=== PATIENT | female | born 1945 | race Caucasian/White ===

== ENCOUNTER 2019-04-19 18:09 | Inpatient (IN) ==
[2019-04-19] MEDS ORDERED: ALBUTEROL SULFATE 2.5 MG/0.5 ML VIAL.NEB IH ONE ×2 (18:16→18:18)
--- NOTE | 2019-04-19 18:18 | ERNOTE ---
Dyspnea - General Presenting Symptoms: shortness of breath Time Seen by Provider: 04/19/19 18:10 Source: patient Exam Limitations: no limitations - Immun/Allergies/Home Medications Immunizations: IMMUNIZATION HX Immunizations Up to Date Yes Allergies/Adverse Reactions: Allergies levofloxacin [From Levaquin] Allergy (Intermediate, Verified 04/19/19 18:14) TONGUE SWOLLEN, RASH amlodipine besylate [From Norvasc] Allergy (Mild, Verified 04/19/19 18:14) SWELLING amoxicillin [Amoxicillin] Allergy (Mild, Verified 04/19/19 18:14) SWELLING ampicillin Allergy (Mild, Verified 04/19/19 18:14) SWELLING nifedipine [From Procardia] Allergy (Mild, Verified 04/19/19 18:14) SWELLING sulfamethoxazole [From Bactrim] Allergy (Mild, Verified 04/19/19 18:14) SWELLING trimethoprim [From Bactrim] Allergy (Mild, Verified 04/19/19 18:14) SWELLING peanut Allergy (Verified 04/19/19 18:14) soybean Allergy (Verified 04/19/19 18:14) wheat Allergy (Verified 04/19/19 18:14) tetracycline [Tetracycline] Adverse Reaction (Intermediate, Verified 04/19/19 18:14) TACHYCARDIA acetaminophen [From Percocet] Adverse Reaction (Mild, Verified 04/19/19 18:14) PROJECTILE VOMITING aspirin Adverse Reaction (Mild, Verified 04/19/19 18:14) Vomiting azithromycin [From Zithromax Z-Bryon] Adverse Reaction (Mild, Verified 04/19/19 18:14) RASH, NAUSEA codeine Adverse Reaction (Mild, Verified 04/19/19 18:14) Nausea hydrocodone bitartrate [From Vicodin] Adverse Reaction (Mild, Verified 04/19/19 18:14) NAUSEA, PROJECTILE VOMITING ibuprofen Adverse Reaction (Mild, Verified 04/19/19 18:14) Vomiting latex Adverse Reaction (Mild, Verified 04/19/19 18:14) RASH oxycodone HCl [From Percocet] Adverse Reaction (Mild, Verified 04/19/19 18:14) PROJECTILE VOMITING sulindac [From Clinoril] Adverse Reaction (Mild, Verified 04/19/19 18:14) Nausea Home Medications: HOME MEDICATIONS Acetaminophen [Tylenol] 325 mg PO Q4H PRN 03/11/14 [Last Taken Unknown] Cetirizine HCl [Zyrtec] 5 mg PO DAILY PRN 03/11/14 [Last Taken Unknown] Multivitamins [Multivitamin Jose Guadalupe] 1 cap PO DAILY 03/11/14 [Last Taken Unknown] Lutein/Zeaxanthin 1 cap PO DAILY 07/20/14 [Last Taken Unknown] fluticasone 250 mcg-salmeterol 50 mcg/dose blistr powdr for inhalation 1 inh IH ONCE #60 ea 12/28/18 [Last Taken Unknown] albuterol sulfate HFA 90 mcg/actuation aerosol inhaler 2 puff INHALATION Q3H PRN #18 g 01/13/19 [Last Taken Unknown] losartan 50 mg-hydrochlorothiazide 12.5 mg tablet 1 tab PO DAILY #90 tab 01/13/19 [Last Taken Unknown] omeprazole magnesium 20 mg tablet,delayed release 20 mg PO DAILY #90 tab 01/13/19 [Last Taken Unknown] - History of Present Illness Narrative: Patient states that she has had increasing shortness of breath for 2-3 days, cough with yellow phlegm, low grade temperature. She has a history of asthma, uses inhalers only as needed. 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 Denies: out of meds, exposure to smoke Frequency of episodes: Reports: occassional episodes Modifying Factors - (Improves): Reports: albuterol, rest Modifying Factors (Worsens): Reports: activity Associated Symptoms-Dyspnea: Reports: fever/chills, cough, wheezing. Denies: chest pain/discomfort Prior Treatment: Reports: previous episodes - years ago. Denies: recently seen, currently on antibiotics Review of Systems - Review of Systems Constitutional: Present: fever, chills, malaise ENT: Absent: nose congestion, nasal drainage, sore throat Respiratory: Present: shortness of breath, cough Cardiology: Absent: chest pain Gastrointestinal/Abdominal: Absent: nausea, vomiting, abdominal pain Genitourinary: Present: no symptoms reported Musculoskeletal: Absent: back pain Neurological: Absent: headache, weakness, numbness Medical History (Updated 01/13/19 @ 13:46 by Juanjose Alicia MD) Hypertension (Chronic) Onset Date: Unknown Cervical lymphadenopathy (Chronic) Onset Date: ~03/2013 Node on the right side of the neck has seen ENT Dr. Matthews was told it was benign lesion Asthma, intermittent (Chronic) Onset Date: ~03/2013 Arthritis (Chronic) Onset Date: Unknown Scoliosis Onset Date: Unknown Otitis media Onset Date: ~12/2012 Shoulder dislocation Onset Date: ~2014 Spondylolysis of lumbosacral region Onset Date: Unknown Uterovaginal prolapse, incomplete Onset Date: ~2010 Surgical History: Surgical History (Updated 01/11/19 @ 09:29 by Rhona Blanco LPN) H/O laparoscopy Onset Date: ~08/2008 H/O tubal ligation Onset Date: ~1979 History of carpal tunnel release Onset Date: ~04/2010 History of right salpingo-oophorectomy Onset Date: ~08/2008 History of tonsillectomy Onset Date: ~1950 History of total vaginal hysterectomy (TVH) Onset Date: ~04/2010 [place] teeth extracted Onset Date: ~1963 utero sacral ligament fixation Onset Date: ~04/2010 H/O colonoscopy with polypectomy Onset Date: ~03/2014 H/O cystoscopy Onset Date: ~04/2010 Family History: Family History (Updated 09/02/18 @ 14:37 by Ignacio De LPN) Father Hypertension Glaucoma CAD (coronary artery disease) Brother Hypertension Diabetes Osteoarthritis Sister Osteoarthritis Hyperthyroidism Mother Hypothyroidism COPD (chronic obstructive pulmonary disease) Uncle Osteoarthritis Social History: Preferred Language German Smoking Status Current every day smoker Alcohol Use none Drug Use none (Last Updated 01/13/19 @ 13:47 by Juanjose Alicia MD) No Social History Section defined Physical Exam - Physical Exam General Appearance: Present: wd/wn, alert, mild distress Head Exam: Present: normal inspection Eye Exam: Normal inspection: bilateral Ears, Nose, Throat: Present: normal pharynx Respiratory: Present: chest nontender, respiratory distress - patient speaks in four work sentences, decreased breath sounds, expiration (prolonged), wheezing Cardiovascular/Chest: Present: no murmur, tachycardia Gastrointestinal/Abdominal: Present: normal bowel sounds, nontender, nondistended, soft Extremity Exam: Present: no edema Neurological Exam: Present: alert, oriented, normal mood/affect Skin Exam: Present: normal color, warm/dry Progress - Results and Orders Patient's Lab Results:: I have reviewed the patient's lab results. - Vital Signs Patient's Vital Signs:: I have reviewed the patient's vital signs. Vital Signs: Vital Signs 04/19/19 18:10 04/19/19 18:14 Temperature 36.8 C Pulse Rate 119 H 120 H Respiratory Rate 26 H Blood Pressure 161/106 H O2 Sat by Pulse Oximetry 89 L - EKG EKG #1 EKG: NSR - sinustachycardia EKG read: Interp. by me - X-Ray X-Ray #1 X-Ray: chest - hyperinflated, fibrotic changes, no acute infiltrate Interpretation: Interp. by me - Progress/Reassessment Chief Complaint: Dyspnea Progress Note-Subjective: 04/19/19 18:47 feeling slightly better after neb treatment improve air movement 04/19/19 19:25 discussed test results with patient and family patient is much more comfortable, reduced respiratory rate, O2sat 92-93% on 2liter 04/19/19 19:[address] Martin, sandraay to admit to observation for COPD, will hold off on antibiotics Departure Clinical Impression: COPD exacerbation, Hypoxemia, Hyponatremia - Departure Disposition: Still a patient Condition: Stable
[2019-04-19 18:25] LABS: Hematocrit 39.7 % (37.0-47.0); Hemoglobin 13.7 gm/dL (12.5-16.0); Mean Cell Volume 92.5 fl (78-100); Mean Corpuscular Hemoglobin 31.9 pg (27-31); Mean Corpuscular Hgb Conc 34.5 g/dl (32-36); Mean Platelet Volume 9.1 fl (8-12.5); Neutrophil # 5.9 K/mm3 (1.3-6.0); Platelet Count 228 K/mm3 (150-450); Red Blood Count 4.29 M/mm3 (4.2-5.4); Red Cell Distribution Width 13.2 % (11.5-14.0); White Blood Count 8.6 K/mm3 (4.0-10.5)
[2019-04-19 18:43] LABS: ALT 27 U/L (19-67); AST 21 U/L (0-48); Albumin * 3.6 gm/dl (3.4-5.0); Alkaline Phosphatase * 63 U/L (50-170); Anion Gap 15.2 mmol/L (6.8-13.8); BUN/Creatinine Ratio 10.9 (9.0-21.6); Bilirubin, Total 0.5 mg/dL (0.0-1.1); Blood Urea Nitrogen 5 mg/dL (3-23); Ca. Corrected For Albumin 8.6 mg/dL (8.4-10.2); Calcium * 8.6 mg/dL (7.9-10.9); Carbon Dioxide 25.6 mmol/L (24-32.6); Chloride 88 mmol/L (97-106); Glucose * 117 mg/dL (70-110); Potassium 3.8 mmol/L (3.4-4.6); Sodium 125 mmol/L (132-142); Total Protein 7.1 gm/dL (6.2-8.2); Troponin I Less than 0.017 ng/mL (0.00-0.10)
[2019-04-19] MEDS ORDERED: METHYLPREDNISOLONE SOD SUCC/PF 125 MG/2 ML VIAL IV ONE (18:48)
[2019-04-19] MEDS ORDERED: ALBUTEROL SULFATE 2.5 MG/0.5 ML VIAL.NEB IH PRN (19:50)
[2019-04-19] MEDS ORDERED: ALBUTEROL SULFATE/IPRATROPIUM 3 ML NEBU IH SCH (20:00)
[2019-04-20] MEDS: ALBUTEROL SULFATE/IPRATROPIUM 3 ML NEBU IH SCH ×4 (01:01→18:11)
[2019-04-20] MEDS ORDERED: LORATADINE 10 MG TABLET PO PRN (05:49)
[2019-04-20] MEDS ORDERED: ACETAMINOPHEN 325 MG TABLET PO PRN (05:49)
[2019-04-20] MEDS ORDERED: FLUTICASONE PROPION/SALMETEROL 14 PUFF DISK.W.DEV IH SCH (06:00)
--- NOTE | 2019-04-20 08:09 | HP ---
Chief Complaint - Chief Complaint Date of Service: 04/20/19 Time of Service: 07:44 Chief Complaint: shortness of breath History of Present Illness: Patient with PMHx of intermittent asthma and environmental allergies was brought to the ED via EMS for shortness of breath. She had a few days of upper respiratory congestion. She lives in an old house with 19 steep stairs, and the bathrooms are upstairs. She developed acute onset shortness of breath after coming down from the bathroom, which is when her called EMS. She had a similar episode 19 years ago. She reports having a temperature in the 99 range, which she reports is a fever for her. Her cough had been productive of yellow sputum, but is now dry. She denies chest pain or lower extremity swelling. In the ED, she was given 125 mg of Solu-Medrol, and feels better today. She does not use oxygen at baseline, but is using oxygen currently. She has an extensive allergy list to many antibiotics, and would prefer to avoid antibiotics if possible. She has some hesitancy to try oral steroids, but is willing to do so to help clear up her symptoms. Medical History (Updated 04/19/19 @ 20:07 by Rhona Phipps MD) Hypertension (Chronic) Onset Date: Unknown Cervical lymphadenopathy (Chronic) Onset Date: ~03/2013 Node on the right side of the neck has seen ENT Dr. Matthews was told it was benign lesion Asthma, intermittent (Chronic) Onset Date: ~03/2013 Arthritis (Chronic) Onset Date: Unknown Scoliosis Onset Date: Unknown Otitis media Onset Date: ~12/2012 Shoulder dislocation Onset Date: ~2014 Spondylolysis of lumbosacral region Onset Date: Unknown Uterovaginal prolapse, incomplete Onset Date: ~2010 Surgical History: Surgical History (Updated 01/11/19 @ 09:29 by Rhona Blanco LPN) H/O laparoscopy Onset Date: ~08/2008 H/O tubal ligation Onset Date: ~1979 History of carpal tunnel release Onset Date: ~04/2010 History of right salpingo-oophorectomy Onset Date: ~08/2008 History of tonsillectomy Onset Date: ~1950 History of total vaginal hysterectomy (TVH) Onset Date: ~04/2010 [place] teeth extracted Onset Date: ~1963 utero sacral ligament fixation Onset Date: ~04/2010 H/O colonoscopy with polypectomy Onset Date: ~03/2014 H/O cystoscopy Onset Date: ~04/2010 Family History: Family History (Updated 09/02/18 @ 14:37 by Ignacio De LPN) Father Hypertension Glaucoma CAD (coronary artery disease) Brother Hypertension Diabetes Osteoarthritis Sister Osteoarthritis Hyperthyroidism Mother Hypothyroidism COPD (chronic obstructive pulmonary disease) Uncle Osteoarthritis Social History: Patient Lives/Resources With Spouse Utilized Occupation retired Preferred Language Divehi Do you have any congregational or Yes: christian cultural preference? Smoking Status Current every day smoker Have you smoked in the past 12 Yes months Alcohol Use none Drug Use none (Last Updated 01/13/19 @ 13:47 by Juanjose Alicia MD) No Social History Section defined Review Of Systems (GEN) - Review of Systems Generalized/Overall Review: Present: Fever - Subjective EENTM: Absent: Throat Pain Respiratory: Present: Cough, Shortness of Breath, Wheezing Cardiac: Absent: Chest Pain, Edema Abdominal: Present: Diarrhea - Has had loose stools for about a week. Absent: Nausea, Vomiting Genitourinary: Present: No Symptoms Reported Musculoskeletal: Present: No Symptoms Reported Neurological: Present: No Symptoms Reported Skin: Present: No Symptoms Reported Immunizations: IMMUNIZATION HX Immunizations Up to Date Yes Allergies/Adverse Reactions: Allergies Allergy/AdvReac Type Severity Reaction Status Date / Time levofloxacin [From Levaquin] Allergy Intermediate TONGUE Verified 04/19/19 18:14 SWOLLEN, RASH amlodipine besylate Allergy Mild SWELLING Verified 04/19/19 18:14 [From Norvasc] amoxicillin [Amoxicillin] Allergy Mild SWELLING Verified 04/19/19 18:14 ampicillin Allergy Mild SWELLING Verified 04/19/19 18:14 nifedipine [From Procardia] Allergy Mild SWELLING Verified 04/19/19 18:14 sulfamethoxazole Allergy Mild SWELLING Verified 04/19/19 18:14 [From Bactrim] trimethoprim [From Bactrim] Allergy Mild SWELLING Verified 04/19/19 18:14 peanut Allergy Verified 04/19/19 18:14 soybean Allergy Verified 04/19/19 18:14 wheat Allergy Verified 04/19/19 18:14 tetracycline [Tetracycline] AdvReac Intermediate TACHYCARDIA Verified 04/19/19 18:14 acetaminophen [From Percocet] AdvReac Mild PROJECTILE Verified 04/19/19 18:14 VOMITING aspirin AdvReac Mild Vomiting Verified 04/19/19 18:14 azithromycin AdvReac Mild RASH, Verified 04/19/19 18:14 [From Zithromax Z-Bryon] NAUSEA codeine AdvReac Mild Nausea Verified 04/19/19 18:14 hydrocodone bitartrate AdvReac Mild NAUSEA, Verified 04/19/19 18:14 [From Vicodin] PROJECTILE VOMITING ibuprofen AdvReac Mild Vomiting Verified 04/19/19 18:14 latex AdvReac Mild RASH Verified 04/19/19 18:14 oxycodone HCl [From Percocet] AdvReac Mild PROJECTILE Verified 04/19/19 18:14 VOMITING sulindac [From Clinoril] AdvReac Mild Nausea Verified 04/19/19 18:14 Home Medications: HOME MEDICATIONS Acetaminophen [Tylenol] 325 mg PO Q4H PRN 03/11/14 [Last Taken Unknown] Cetirizine HCl [Zyrtec] 5 mg PO DAILY PRN 03/11/14 [Last Taken Unknown] Multivitamins [Multivitamin Jose Guadalupe] 1 cap PO DAILY 03/11/14 [Last Taken Unknown] Lutein/Zeaxanthin 1 cap PO DAILY 07/20/14 [Last Taken Unknown] fluticasone 250 mcg-salmeterol 50 mcg/dose blistr powdr for inhalation 1 inh IH ONCE #60 ea 12/28/18 [Last Taken Unknown] albuterol sulfate HFA 90 mcg/actuation aerosol inhaler 2 puff INHALATION Q3H PRN #18 g 01/13/19 [Last Taken Unknown] losartan 50 mg-hydrochlorothiazide 12.5 mg tablet 1 tab PO DAILY #90 tab 01/13 [Last Taken Unknown] omeprazole magnesium 20 mg tablet,delayed release 20 mg PO DAILY #90 tab 01/13/19 [Last Taken Unknown] Exam - Exam Vital Signs: Vital Signs - Last Taken Temp 36.4 C 04/20/19 06:41 Pulse 115 H 04/20/19 06:41 Resp 22 H 04/20/19 06:41 BP 134/83 04/20/19 06:41 Pulse Ox 95 04/20/19 06:41 Constitutional: Present: Alert, Oriented x3, Cooperative, Elderly, Thin and frail ENT Exam: Present: moist mucous membranes Respiratory: Present: no respiratory distress, wheezing - Extensive expiratory wheezing in all lung thibodeaux, other - Wearing nasal cannula at 2 L Cardiovascular/Chest: Present: no edema, tachycardia Abdomen: Present: Normal bowel sounds, soft, nontender Extremity: Absent: lower extremity edema Neurologic: Present: normal mood/affect Eye contact: Present: cooperative Diagnostic Studies: Abnormal Lab Results 04/19/19 04/19/19 04/19/19 Range/Units 18:20 18:20 18:20 MCH 31.9 H (27-31) pg Monocytes % 10.4 H (0.0-9) % Sodium 125 L (132-142) mmol/L Plasma Sodium 125 L (130-142) mmol/L Chloride 88 L (97-106) mmol/L Anion Gap 15.2 H (6.8-13.8) mmol/L Est GFR (Non-Af Amer) 142 H D (60-130) mL/min Random Glucose 117 H (70-110) mg/dL B-Natriuretic Peptide 462 H (5-325) pg/mL Laboratory Results WBC 8.6 K/mm3 (4.0-10.5) 04/19/19 18:20 RBC 4.29 M/mm3 (4.2-5.4) 04/19/19 18:20 Hgb 13.7 gm/dL (12.5-16.0) 04/19/19 18:20 Hct 39.7 % (37.0-47.0) 04/19/19 18:20 MCV 92.5 fl (78-100) 04/19/19 18:20 MCH 31.9 pg (27-31) H 04/19/19 18:20 MCHC 34.5 g/dl (32-36) 04/19/19 18:20 RDW 13.2 % (11.5-14.0) 04/19/19 18:20 Plt Count 228 K/mm3 (150-450) 04/19/19 18:20 MPV 9.1 fl (8-12.5) 04/19/19 18:20 Immature Gran % (Auto) 0.20 % (0.001-0.429) 04/19/19 18:20 Immature Gran # (Auto) 0.02 K/mm3 (0.000-0.0310) 04/19/19 18:20 68.0 % (42-75.0) 04/19/19 18:20 20.5 % (20-51) 04/19/19 18:20 10.4 % (0.0-9) H 04/19/19 18:20 0.1 % (0.0-3.0) 04/19/19 18:20 0.8 % (0.0-1.0) 04/19/19 18:20 Nucleated RBC % 0.0 k/mm3 (0-1) 04/19/19 18:20 5.9 K/mm3 (1.3-6.0) 04/19/19 18:20 1.77 k/mm3 (1.5-3.5) 04/19/19 18:20 0.9 k/mm3 (0.0-1.0) 04/19/19 18:20 0.0 k/mm3 (0.0-0.7) 04/19/19 18:20 Absolute Basophils 0.1 k/mm3 (0.0-0.1) 04/19/19 18:20 Sodium 125 mmol/L (132-142) L 04/19/19 18:20 125 mmol/L (130-142) L 04/19/19 18:20 Potassium 3.8 mmol/L (3.4-4.6) 04/19/19 18:20 Chloride 88 mmol/L (97-106) L 04/19/19 18:20 Carbon Dioxide 25.6 mmol/L (24-32.6) 04/19/19 18:20 15.2 mmol/L (6.8-13.8) H 04/19/19 18:20 BUN 5 mg/dL (3-23) 04/19/19 18:20 0.46 mg/dL (0.4-1.4) 04/19/19 18:20 Est GFR (Non-Af Amer) 142 mL/min (60-130) H D 04/19/19 18:20 10.9 (9.0-21.6) 04/19/19 18:20 117 mg/dL (70-110) H 04/19/19 18:20 Calcium 8.6 mg/dL (7.9-10.9) 04/19/19 18:20 Calcium Adj for Albumin 8.6 mg/dL (8.4-10.2) 04/19/19 18:20 0.5 mg/dL (0.0-1.1) 04/19/19 18:20 AST 21 U/L (0-48) 04/19/19 18:20 ALT 27 U/L (19-67) 04/19/19 18:20 63 U/L (50-170) 04/19/19 18:20 Less than 0.017 ng/mL (0.00-0.10) 04/19/19 18:20 B-Natriuretic Peptide 462 pg/mL (5-325) H 04/19/19 18:20 7.1 gm/dL (6.2-8.2) 04/19/19 18:20 3.6 gm/dl (3.4-5.0) 04/19/19 18:20 Assessment/Plan - Assessment/Plan (1) COPD exacerbation Assessment: Patient does not have a formal diagnosis of COPD, however her history and exam support COPD. Her CXR shows hyperinflation. She does not have an elevated WBC, and has been afebrile. She was given 125 mg of Solu-Medrol last night in the ER, and will continue 40 mg daily prednisone. Continue prn DuoNeb treatments. She feels better than she did yesterday, but still requires 2 L of oxygen, and is still getting dyspneic when walking to the bathroom. We will wean as tolerated. Will check her oxygen requirements with walking. She would prefer to avoid antibiotics since she has so many allergies. Will hold off on antibiotics at this time, but if she is still not better tomorrow, we will discuss starting doxycycline. Her reports she appears to be close to her baseline. She has not been hospitalized for this before. Possible DC tomorrow. She would benefit from having a commode on the main level of her home. With her likely COPD, and the bathrooms being on the upper level of her home, she will probably have repeated hospitalizations. Recommend checking PFTs after DC when her breathing status has normalized. Problem: Acute (2) Hyponatremia Assessment: Sodium of 125 on presentation to the ED yesterday. Repeat pending. If still low, will give 1 L of fluids throughout the day and recheck tomorrow. She denies alcohol intake. Problem: Acute (3) Hypertension Assessment: Well-controlled. Continuing home medications. Problem: Chronic Qualifiers: (4) Asthma, intermittent Assessment: Continuing home medications. Problem: Chronic (5) Chronic GERD Assessment: Continue home omeprazole. Problem: Chronic
--- NOTE | 2019-04-20 08:18 | HP ---
Chief Complaint - Chief Complaint Date of Service: 04/20/19 Time of Service: 07:30 Medical History (Updated 04/19/19 @ 20:07 by Rhona Phipps MD) Hypertension (Chronic) Onset Date: Unknown Cervical lymphadenopathy (Chronic) Onset Date: ~03/2013 Node on the right side of the neck has seen ENT Dr. Matthews was told it was benign lesion Asthma, intermittent (Chronic) Onset Date: ~03/2013 Arthritis (Chronic) Onset Date: Unknown Scoliosis Onset Date: Unknown Otitis media Onset Date: ~12/2012 Shoulder dislocation Onset Date: ~2014 Spondylolysis of lumbosacral region Onset Date: Unknown Uterovaginal prolapse, incomplete Onset Date: ~2010 Surgical History: Surgical History (Updated 01/11/19 @ 09:29 by Rhona Blanco LPN) H/O laparoscopy Onset Date: ~08/2008 H/O tubal ligation Onset Date: ~1979 History of carpal tunnel release Onset Date: ~04/2010 History of right salpingo-oophorectomy Onset Date: ~08/2008 History of tonsillectomy Onset Date: ~1950 History of total vaginal hysterectomy (TVH) Onset Date: ~04/2010 [place] teeth extracted Onset Date: ~1963 utero sacral ligament fixation Onset Date: ~04/2010 H/O colonoscopy with polypectomy Onset Date: ~03/2014 H/O cystoscopy Onset Date: ~04/2010 Family History: Family History (Updated 09/02/18 @ 14:37 by Ignacio De LPN) Father Hypertension Glaucoma CAD (coronary artery disease) Brother Hypertension Diabetes Osteoarthritis Sister Osteoarthritis Hyperthyroidism Mother Hypothyroidism COPD (chronic obstructive pulmonary disease) Uncle Osteoarthritis Social History: Patient Lives/Resources With Spouse Utilized Occupation retired Preferred Language Upper Sorbian Do you have any anglican or Yes: latter-day cultural preference? Smoking Status Current every day smoker Have you smoked in the past 12 Yes months Alcohol Use none Drug Use none (Last Updated 01/13/19 @ 13:47 by Juanjose Alicia MD) No Social History Section defined Immunizations: IMMUNIZATION HX Immunizations Up to Date Yes Allergies/Adverse Reactions: Allergies Allergy/AdvReac Type Severity Reaction Status Date / Time levofloxacin [From Levaquin] Allergy Intermediate TONGUE Verified 04/19/19 18:14 SWOLLEN, RASH amlodipine besylate Allergy Mild SWELLING Verified 04/19/19 18:14 [From Norvasc] amoxicillin [Amoxicillin] Allergy Mild SWELLING Verified 04/19/19 18:14 ampicillin Allergy Mild SWELLING Verified 04/19/19 18:14 nifedipine [From Procardia] Allergy Mild SWELLING Verified 04/19/19 18:14 sulfamethoxazole Allergy Mild SWELLING Verified 04/19/19 18:14 [From Bactrim] trimethoprim [From Bactrim] Allergy Mild SWELLING Verified 04/19/19 18:14 peanut Allergy Verified 04/19/19 18:14 soybean Allergy Verified 04/19/19 18:14 wheat Allergy Verified 04/19/19 18:14 tetracycline [Tetracycline] AdvReac Intermediate TACHYCARDIA Verified 04/19/19 18:14 acetaminophen [From Percocet] AdvReac Mild PROJECTILE Verified 04/19/19 18:14 VOMITING aspirin AdvReac Mild Vomiting Verified 04/19/19 18:14 azithromycin AdvReac Mild RASH, Verified 04/19/19 18:14 [From Zithromax Z-Bryon] NAUSEA codeine AdvReac Mild Nausea Verified 04/19/19 18:14 hydrocodone bitartrate AdvReac Mild NAUSEA, Verified 04/19/19 18:14 [From Vicodin] PROJECTILE VOMITING ibuprofen AdvReac Mild Vomiting Verified 04/19/19 18:14 latex AdvReac Mild RASH Verified 04/19/19 18:14 oxycodone HCl [From Percocet] AdvReac Mild PROJECTILE Verified 04/19/19 18:14 VOMITING sulindac [From Clinoril] AdvReac Mild Nausea Verified 04/19/19 18:14 Home Medications: HOME MEDICATIONS Acetaminophen [Tylenol] 325 mg PO Q4H PRN 03/11/14 [Last Taken Unknown] Cetirizine HCl [Zyrtec] 5 mg PO DAILY PRN 03/11/14 [Last Taken Unknown] Multivitamins [Multivitamin Jose Guadalupe] 1 cap PO DAILY 03/11/14 [Last Taken Unknown] Lutein/Zeaxanthin 1 cap PO DAILY 07/20/14 [Last Taken Unknown] fluticasone 250 mcg-salmeterol 50 mcg/dose blistr powdr for inhalation 1 inh IH ONCE #60 ea 12/28/18 [Last Taken Unknown] albuterol sulfate HFA 90 mcg/actuation aerosol inhaler 2 puff INHALATION Q3H PRN #18 g 01/13/19 [Last Taken Unknown] losartan 50 mg-hydrochlorothiazide 12.5 mg tablet 1 tab PO DAILY #90 tab 01/13/19 [Last Taken Unknown] omeprazole magnesium 20 mg tablet,delayed release 20 mg PO DAILY #90 tab 01/13/19 [Last Taken Unknown] Exam - Exam Vital Signs: Vital Signs - Last Taken Temp 36.4 C 04/20/19 06:41 Pulse 115 H 04/20/19 06:41 Resp 22 H 04/20/19 06:41 BP 134/83 04/20/19 06:41 Pulse Ox 95 04/20/19 06:41 Diagnostic Studies: Abnormal Lab Results 04/19/19 04/19/19 04/19/19 Range/Units 18:20 18:20 18:20 MCH 31.9 H (27-31) pg Monocytes % 10.4 H (0.0-9) % Sodium 125 L (132-142) mmol/L Plasma Sodium 125 L (130-142) mmol/L Chloride 88 L (97-106) mmol/L Anion Gap 15.2 H (6.8-13.8) mmol/L Est GFR (Non-Af Amer) 142 H D (60-130) mL/min Random Glucose 117 H (70-110) mg/dL B-Natriuretic Peptide 462 H (5-325) pg/mL Laboratory Results WBC 8.6 K/mm3 (4.0-10.5) 04/19/19 18:20 RBC 4.29 M/mm3 (4.2-5.4) 04/19/19 18:20 Hgb 13.7 gm/dL (12.5-16.0) 04/19/19 18:20 Hct 39.7 % (37.0-47.0) 04/19/19 18:20 MCV 92.5 fl (78-100) 04/19/19 18:20 MCH 31.9 pg (27-31) H 04/19/19 18:20 MCHC 34.5 g/dl (32-36) 04/19/19 18:20 RDW 13.2 % (11.5-14.0) 04/19/19 18:20 Plt Count 228 K/mm3 (150-450) 04/19/19 18:20 MPV 9.1 fl (8-12.5) 04/19/19 18:20 Immature Gran % (Auto) 0.20 % (0.001-0.429) 04/19/19 18:20 Immature Gran # (Auto) 0.02 K/mm3 (0.000-0.0310) 04/19/19 18:20 68.0 % (42-75.0) 04/19/19 18:20 20.5 % (20-51) 04/19/19 18:20 10.4 % (0.0-9) H 04/19/19 18:20 0.1 % (0.0-3.0) 04/19/19 18:20 0.8 % (0.0-1.0) 04/19/19 18:20 Nucleated RBC % 0.0 k/mm3 (0-1) 04/19/19 18:20 5.9 K/mm3 (1.3-6.0) 04/19/19 18:20 1.77 k/mm3 (1.5-3.5) 04/19/19 18:20 0.9 k/mm3 (0.0-1.0) 04/19/19 18:20 0.0 k/mm3 (0.0-0.7) 04/19/19 18:20 Absolute Basophils 0.1 k/mm3 (0.0-0.1) 04/19/19 18:20 Sodium 125 mmol/L (132-142) L 04/19/19 18:20 125 mmol/L (130-142) L 04/19/19 18:20 Potassium 3.8 mmol/L (3.4-4.6) 04/19/19 18:20 Chloride 88 mmol/L (97-106) L 04/19/19 18:20 Carbon Dioxide 25.6 mmol/L (24-32.6) 04/19/19 18:20 15.2 mmol/L (6.8-13.8) H 04/19/19 18:20 BUN 5 mg/dL (3-23) 04/19/19 18:20 0.46 mg/dL (0.4-1.4) 04/19/19 18:20 Est GFR (Non-Af Amer) 142 mL/min (60-130) H D 04/19/19 18:20 10.9 (9.0-21.6) 04/19/19 18:20 117 mg/dL (70-110) H 04/19/19 18:20 Calcium 8.6 mg/dL (7.9-10.9) 04/19/19 18:20 Calcium Adj for Albumin 8.6 mg/dL (8.4-10.2) 04/19/19 18:20 0.5 mg/dL (0.0-1.1) 04/19/19 18:20 AST 21 U/L (0-48) 04/19/19 18:20 ALT 27 U/L (19-67) 04/19/19 18:20 63 U/L (50-170) 04/19/19 18:20 Less than 0.017 ng/mL (0.00-0.10) 04/19/19 18:20 B-Natriuretic Peptide 462 pg/mL (5-325) H 04/19/19 18:20 7.1 gm/dL (6.2-8.2) 04/19/19 18:20 3.6 gm/dl (3.4-5.0) 04/19/19 18:20
[2019-04-20 08:25] LABS: Albumin * 3.3 gm/dl (3.4-5.0); Anion Gap 11.6 mmol/L (6.8-13.8); BUN/Creatinine Ratio 12.8 (9.0-21.6); Bilirubin, Total 0.4 mg/dL (0.0-1.1); Ca. Corrected For Albumin 9.4 mg/dL (8.4-10.2); Calcium * 9.2 mg/dL (7.9-10.9); Carbon Dioxide 29.5 mmol/L (24-32.6); Potassium 4.1 mmol/L (3.4-4.6)
[2019-04-20] MEDS ORDERED: [UNRECOGNIZED DRUG - OTHER] PO SCH (09:00)
[2019-04-20] MEDS ORDERED: HYDROCHLOROTHIAZIDE PO SCH (09:00)
[2019-04-20] MEDS ORDERED: LOSARTAN PO SCH (09:00)
[2019-04-20] MEDS: PANTOPRAZOLE SODIUM 20 MG TABLET.DR PO SCH (09:37)
[2019-04-20] MEDS: LOSARTAN POTASSIUM 50 MG TABLET PO SCH (09:38)
[2019-04-20] MEDS: HYDROCHLOROTHIAZIDE 12.5 MG CAPSULE PO SCH (09:38)
[2019-04-20] MEDS: predniSONE 20 MG TABLET PO SCH (09:38)
[2019-04-20] MEDS: FLUTICASONE PROPION/SALMETEROL 14 PUFF DISK.W.DEV IH SCH (09:42)
[2019-04-20] MEDS ORDERED: ZYRTEC PO PRN (09:45)
[2019-04-20] MEDS: IPRATROPIUM BROMIDE 0.5 MG/2.5 ML VIAL.NEB IH PRN (18:11)
[2019-04-20] MEDS: LEVALBUTEROL HCL 1.25 MG/3 ML AMPUL IH PRN (18:11)
[2019-04-21] MEDS: IPRATROPIUM BROMIDE 0.5 MG/2.5 ML VIAL.NEB IH PRN (02:57)
[2019-04-21] MEDS: LEVALBUTEROL HCL 1.25 MG/3 ML AMPUL IH PRN ×4 (03:01→21:32)
[2019-04-21 05:58] LABS: Albumin * 3.4 gm/dl (3.4-5.0); Anion Gap 12.5 mmol/L (6.8-13.8); Bilirubin, Total 0.5 mg/dL (0.0-1.1); Ca. Corrected For Albumin 9.1 mg/dL (8.4-10.2); Calcium * 8.9 mg/dL (7.9-10.9); Carbon Dioxide 29.7 mmol/L (24-32.6); Potassium 4.2 mmol/L (3.4-4.6); Total Protein 6.2 gm/dL (6.2-8.2)
[2019-04-21 06:13] LABS: BUN/Creatinine Ratio 21.6 (9.0-21.6)
[2019-04-21] MEDS ORDERED: METHYLPREDNISOLONE SOD SUCC/PF 125 MG/2 ML VIAL IV ONE (08:00)
--- NOTE | 2019-04-21 08:21 | PN ---
Subjective - Date and Time Seen Date: 04/21/19 Time: 07:56 Subjective Narrative: Patient had a difficult night, with worsened shortness of breath around 3 am, which improved with increased oxygen to 2 L via NC. She is still significantly short of breath with any activity. Her appetite is decreased. Her heart rate and respiratory rate remain elevated. She hasn't had a BM since admission. Objective - Review of Systems Generalized/Overall Review: Denies: Fever Respiratory: Reports: Cough, Shortness of Breath, Wheezing Cardiac: Denies: Chest Pain, Edema Abdominal: Denies: Nausea Genitourinary Symptoms: Reports: No Symptoms Reported Musculoskeletal Complaints: Reports: No Symptoms Reported - Vitals Vitals: Last Vital Signs Temp 37 C 04/21/19 06:00 Pulse 132 H 04/21/19 06:00 Resp 22 H 04/21/19 06:00 BP 154/115 H 04/21/19 06:00 Pulse Ox 92 L 04/21/19 06:00 - Abnormal Lab Findings Abnormal Lab Findings: Abnormal Lab Results 04/20/19 04/21/19 Range/Units 08:04 05:05 Sodium 129 L 130 L (132-142) mmol/L Chloride 92 L 92 L (97-106) mmol/L Est GFR (Non-Af Amer) 138 H (60-130) mL/min Random Glucose 205 H D (70-110) mg/dL AST 54 H (0-48) U/L Albumin 3.3 L (3.4-5.0) gm/dl - Exam Constitutional: Present: Alert, Cooperative, Thin and frail Respiratory: Present: wheezing, other - increased work of breathing. Using 2L oxygen via NC Cardiovascular/Chest: Present: tachycardia Abdomen: Present: hypoactive Extremity: Absent: lower extremity edema Neurologic: Present: normal mood/affect Assessment/Plan - Problems/Diagnosis (1) COPD exacerbation Problem: Acute Narrative: Likely COPD exacerbation, although her history and exam support COPD. She has multiple antibiotic allergies, and was hoping to avoid them, but she is not improving with steroids alone. She agreed to starting doxycycline, and will administer probiotics also. She was given 125 mg of Solu-Medrol in the ER, and was given 40 mg daily prednisone yesterday. She continues to have significant wheezing, and will give 60 mg IV solumedrol today, and potentially resume po steroids tomorrow. Yari treatments changed to xopenex for elevated heart rate. Will need to monitor her tonight also. Wean oxygen as tolerated, but given her difficulties overnight, I suspect she may not be weaned today. May need to go home with oxygen temporarily. She does not use O2 at home normally. Potential DC in 24-48 hours. She would benefit from having a commode on the main level of her home. With her likely COPD, and the bathrooms being on the upper level of her home, she will probably have repeated hospitalizations. Recommend checking PFTs after DC when her breathing status has normalized. (2) Hyponatremia Problem: Acute Narrative: Improved to 130 without intervention. May be secondary to decreased po intake. Recheck in am. (3) Hypertension Problem: Chronic Qualifiers: Narrative: Continue home HCTZ, losartan. (4) Asthma, intermittent Problem: Chronic (5) Chronic GERD Problem: Chronic Narrative: Continue home pantoprazole.
[2019-04-21] MEDS: DOXYCYCLINE HYCLATE 100 MG TABLET PO SCH ×2 (09:01→22:10)
[2019-04-21] MEDS: HYDROCHLOROTHIAZIDE 12.5 MG CAPSULE PO SCH (09:02)
[2019-04-21] MEDS: LOSARTAN POTASSIUM 50 MG TABLET PO SCH (09:02)
[2019-04-21] MEDS: LACTOBACILLUS ACIDOPHILUS 1 EACH CAPSULE PO SCH (09:02)
[2019-04-21] MEDS: PANTOPRAZOLE SODIUM 20 MG TABLET.DR PO SCH (09:02)
[2019-04-21] MEDS: FLUTICASONE PROPION/SALMETEROL 14 PUFF DISK.W.DEV IH SCH (09:04)
[2019-04-21] MEDS: TIOTROPIUM BROMIDE 5 CAP INHALER IH SCH (10:51)
[2019-04-22] MEDS: LEVALBUTEROL HCL 1.25 MG/3 ML AMPUL IH PRN ×2 (06:59→15:44)
[2019-04-22] MEDS: LOSARTAN POTASSIUM 50 MG TABLET PO SCH (08:06)
[2019-04-22] MEDS: FLUTICASONE PROPION/SALMETEROL 14 PUFF DISK.W.DEV IH SCH (08:06)
[2019-04-22] MEDS: TIOTROPIUM BROMIDE 5 CAP INHALER IH SCH (08:06)
[2019-04-22] MEDS: PANTOPRAZOLE SODIUM 20 MG TABLET.DR PO SCH (08:06)
[2019-04-22] MEDS: predniSONE 20 MG TABLET PO SCH (08:06)
[2019-04-22] MEDS: LACTOBACILLUS ACIDOPHILUS 1 EACH CAPSULE PO SCH (08:07)
[2019-04-22] MEDS: DOXYCYCLINE HYCLATE 100 MG TABLET PO SCH ×2 (08:07→20:38)
[2019-04-22] MEDS: HYDROCHLOROTHIAZIDE 12.5 MG CAPSULE PO SCH (08:07)
--- NOTE | 2019-04-22 10:48 | PN ---
Subjective - Date and Time Seen Date: 04/22/19 Time: 10:37 Subjective Narrative: Patient reports feeling much better today. She continues to have some shortness of breath with exertion, but has been breathing easily when at rest. She is still requiring oxygen. She is able to eat and ambulate to the bathroom. Objective - Review of Systems Generalized/Overall Review: Reports: Weakness Respiratory: Reports: Cough, Shortness of Breath, Wheezing Cardiac: Denies: Chest Pain, Edema Abdominal: Denies: Nausea Genitourinary Symptoms: Reports: No Symptoms Reported - Vitals Vitals: Last Vital Signs Temp 36.4 C 04/22/19 10:00 Pulse 105 H 04/22/19 10:00 Resp 20 04/22/19 10:00 BP 146/82 04/22/19 10:00 Pulse Ox 98 04/22/19 10:00 - Exam Constitutional: Present: Alert, Oriented x3, Cooperative, Thin and frail Respiratory: Present: no respiratory distress, wheezing - in all lung thibodeaux, improved from yesterday, other - using 2 L O2 via NC Cardiovascular/Chest: Present: tachycardia - 110 Abdomen: Present: Normal bowel sounds, soft, nontender Extremity: Absent: lower extremity edema Assessment/Plan - Problems/Diagnosis (1) COPD exacerbation Problem: Acute Narrative: Heart rate and respiratory rates have improved overnight, but she is still wheezing significantly and requiring oxygen. She is using nebulizer treatments every 6 hours. Xopenex was started, as the albuterol was increasing her heart rate to the 120's and 130's. Will continue current treatment with prednisone and doxycycline, and reassess in the morning. She will need a nebulizer at home, and will likely need to go home with O2. She only has bathrooms on the second level of her home, and there are 19 stairs to get there. Recommend she has a commode on the main floor. I anticipate her COPD will continue to be problematic, and she is confined to the main floor of her home, which does not have bathrooms. Spiriva was started yesterday, and she is responding well. She doesn't have a diagnosis of COPD as of yet, and recommend outpatient PFTs when she has recovered. (2) Hyponatremia Problem: Acute Narrative: Improved without intervention. Likely due to decreased intake. (3) Hypertension Problem: Chronic Qualifiers: Narrative: Controlled on home meds. (4) Asthma, intermittent Problem: Chronic (5) Chronic GERD Problem: Chronic (6) Constipation Problem: Acute Narrative: She hasn't had a BM since admission. Offered miralax, but she'd rather try fruit first.
[2019-04-23] MEDS: LEVALBUTEROL HCL 1.25 MG/3 ML AMPUL IH PRN (07:15)
[2019-04-23] MEDS: HYDROCHLOROTHIAZIDE 12.5 MG CAPSULE PO SCH ×2 (07:37→08:06)
[2019-04-23] MEDS: LOSARTAN POTASSIUM 50 MG TABLET PO SCH ×2 (07:37→08:05)
[2019-04-23] MEDS: predniSONE 20 MG TABLET PO SCH (08:07)
[2019-04-23] MEDS: LACTOBACILLUS ACIDOPHILUS 1 EACH CAPSULE PO SCH (08:07)
[2019-04-23] MEDS: FLUTICASONE PROPION/SALMETEROL 14 PUFF DISK.W.DEV IH SCH (08:07)
[2019-04-23] MEDS: PANTOPRAZOLE SODIUM 20 MG TABLET.DR PO SCH (08:08)
[2019-04-23] MEDS: DOXYCYCLINE HYCLATE 100 MG TABLET PO SCH (08:08)
[2019-04-23] MEDS: TIOTROPIUM BROMIDE 5 CAP INHALER IH SCH (08:08)
--- NOTE | 2019-04-23 11:10 | DS ---
(1) COPD exacerbation Problem: Resolved (2) Hyponatremia Problem: Resolved (3) Hypertension Problem: Chronic Qualifiers: (4) Asthma, intermittent Problem: Chronic (5) Chronic GERD Problem: Chronic (6) Constipation Problem: Acute Description of Stay: Patient with PMHx of intermittent asthma and environmental allergies was brought to the ED via EMS for shortness of breath. She had a few days of upper respiratory congestion. She lives in an old house with 19 steep stairs, and the bathrooms are upstairs. She developed acute onset shortness of breath after coming down from the bathroom, which is when her called EMS. She had a similar episode 19 years ago. She reports having a temperature in the 99 range, which she reports is a fever for her. Her cough had been productive of yellow sputum. She denies chest pain or lower extremity swelling. In the ED, she was given 125 mg of Solu-Medrol. She does not use oxygen at baseline, but is using oxygen currently. She has an extensive allergy list to many antibiotics, and wanted to avoid antibiotics, but she was not improving sufficiently. She consented to starting doxycycline on day 3 of hospitalization. She was also hesitant to try oral steroids, but these were also started without adverse effects. She continued to require oxygen, especially with ambulation. On the day of DC, she decreased to 83% with ambulation without O2, and was 93% at rest. She needed 2 L O2 with ambulation to maintain 92% saturation. Will DC with 7 days total of prednisone and doxycycline. She has not had imaging to confirm COPD, but her history and physical are enough to diagnose her with COPD. She will need a commode at home, since there are no bathrooms on the main level. She is unable to ambulate up the stairs with her COPD. Recommend obtaining PFTs after this has resolved. She is confined to the home due to her COPD. She will need medication education and management due to her new diagnosis. She is started on oxygen, and will need vital sign monitoring and cardiovascular monitoring due to new onset COPD. She will need physical therapy at home to help with strengthening, and understanding physical limitations with COPD. Smoking cessation strongly recommended. Procedures Performed: none Results and Findings: Lab Pending Results 04/19/19 18:20: WBC 8.6, RBC 4.29, Hgb 13.7, Hct 39.7, MCV 92.5, MCH 31.9 H, MCHC 34.5, RDW 13.2, Plt Count 228, MPV 9.1, Immature Gran % (Auto) 0.20, Immature Gran # (Auto) 0.02, Neutrophils % 68.0, Lymphocytes % 20.5, Monocytes % 10.4 H, Eosinophils % 0.1, Basophils % 0.8, Nucleated RBC % 0.0, Neutrophils # 5.9, Lymphocytes # 1.77, Monocytes # 0.9, Eosinophils # 0.0, Absolute Basophils 0.1 04/19/19 18:20: Sodium 125 L, Plasma Sodium 125 L, Potassium 3.8, Chloride 88 L, Carbon Dioxide 25.6, Anion Gap 15.2 H, BUN 5, Creatinine 0.46, Est GFR (Non-Af Amer) 142 H D, BUN/Creatinine Ratio 10.9, Random Glucose 117 H, Calcium 8.6, Calcium Adj for Albumin 8.6, Total Bilirubin 0.5, AST 21, ALT 27, Alkaline Phosphatase 63, Troponin I Less than 0.017, Total Protein 7.1, Albumin 3.6 04/19/19 18:20: B-Natriuretic Peptide 462 H 04/20/19 08:04: Sodium 129 L, Plasma Sodium 131, Potassium 4.1, Chloride 92 L, Carbon Dioxide 29.5, Anion Gap 11.6, BUN 6, Creatinine 0.47, Est GFR (Non-Af Amer) 138 H, BUN/Creatinine Ratio 12.8, Random Glucose 205 H D, Calcium 9.2, Calcium Adj for Albumin 9.4, Total Bilirubin 0.4, AST 22, ALT 27, Alkaline Phosphatase 60, Total Protein 7.0, Albumin 3.3 L 04/21/19 05:05: Sodium 130 L, Plasma Sodium 130, Potassium 4.2, Chloride 92 L, Carbon Dioxide 29.7, Anion Gap 12.5, BUN 11 D, Creatinine 0.51, Est GFR (Non-Af Amer) 126, BUN/Creatinine Ratio 21.6, Random Glucose 101 D, Calcium 8.9, Calcium Adj for Albumin 9.1, Total Bilirubin 0.5, AST 54 H, ALT 64, Alkaline Phosphatase 62, Total Protein 6.2, Albumin 3.4 Discharge Location: Home Disposition: Home Health Service Home Health Agency: [facility] Home Health Condition: Stable Face to Face Encounter completed per CMS Guidelines: Yes Discharge Activity: Activity as tolerated Discharge Diet: General/regular food Referrals: Juanjose Alicia MD [Primary Care Provider] - One Week Additional Patient Instructions (free text): [facility] new. Nursing and PT. Please fax orders and call report upon discharge. -Please make TCM appointment unless fpc discharge, or if following up with outside provider. Thank you! Annabel @ [facility] [phone] or Genet at [facility] [phone]. Prescriptions (Any new or edited meds): Albuterol Sulfate [Albuterol Sulfate 0.63 MG/3ML] 0.63 mg INHALATION Q6H PRN #1 vial.neb PRN Reason: Shortness Of Breath/Wheezing Lactobacillus Acidophilus [Bacid] 1 ea PO DAILY #17 cap predniSONE [Prednisone] 40 mg PO DAILY #3 tab Tiotropium [place] [Spiriva] 1 cap INHALATION DAILY #3 inhaler Doxycycline Hyclate [Vibratab] 100 mg PO BID #3 tab Complete Home Medications List: Complete Home Medication List: Acetaminophen [Tylenol] 325 mg PO Q4H PRN 03/11/14 Cetirizine HCl [Zyrtec] 5 mg PO DAILY PRN 03/11/14 Multivitamins [Multivitamin Jose Guadalupe] 1 cap PO DAILY 03/11/14 Lutein/Zeaxanthin 1 cap PO DAILY 07/20/14 fluticasone 250 mcg-salmeterol 50 mcg/dose blistr powdr for inhalation 1 inh IH ONCE #60 ea 12/28/18 albuterol sulfate HFA 90 mcg/actuation aerosol inhaler 2 puff INHALATION Q3H PRN #18 g 01/13/19 losartan 50 mg-hydrochlorothiazide 12.5 mg tablet 1 tab PO DAILY #90 tab 01/13/19 omeprazole magnesium 20 mg tablet,delayed release 20 mg PO DAILY #90 tab 01/13/19 Albuterol Sulfate [Albuterol Sulfate 0.63 MG/3ML] 0.63 mg INHALATION Q6H PRN #1 vial.neb 04/23/19 Doxycycline Hyclate [Vibratab] 100 mg PO BID #3 tab 04/23/19 Lactobacillus Acidophilus [Bacid] 1 ea PO DAILY #17 cap 04/23/19 Tiotropium [place] [Spiriva] 1 cap INHALATION DAILY #3 inhaler 04/23/19 predniSONE [Prednisone] 40 mg PO DAILY #3 tab 04/23/19
[2019-04-23 14:03] VITALS: BP 156/92
== END 2019-04-23 14:05 | disposition home health service (06) | DRG 191 ==
LOC: MS 18:09 → ER 18:09 → MS 20:10
PROVIDERS: ADMIT Family Medicine; ATTEND Family Medicine
DX: Z99.81 Dependence on supplemental oxygen; J45.21 Mild intermittent asthma with (acute) exacerbation; E87.1 Hypo-osmolality and hyponatremia; K59.00 Constipation, unspecified; F17.210 Nicotine dependence, cigarettes, uncomplicated; I10 Essential (primary) hypertension; K21.9 Gastro-esophageal reflux disease without esophagitis; J44.1 Chronic obstructive pulmonary disease with (acute) exacerbation
CPT/HCPCS: 36415; 71020; 71046; 80053; 83519; 83880; 84484; 85025; 93005; 94640; 94664; 94760; 97116; 97161; 97530; 99285; G0378

== ENCOUNTER 2019-10-27 14:59 | Inpatient (IN) ==
[2019-10-27] MEDS ORDERED: METHYLPREDNISOLONE SOD SUCC/PF 125 MG/2 ML VIAL IV ONE (15:18)
--- NOTE | 2019-10-27 15:27 | ERNOTE ---
Dyspnea - Date Date of Service: 10/27/19 - General Presenting Symptoms: shortness of breath, difficulty of breathing, wheezing Time Seen by Provider: 10/27/19 15:12 Source: patient, family Exam Limitations: no limitations - Immun/Allergies/Home Medications Immunizations: IMMUNIZATION HX Immunizations Up to Date Yes History of Influenza Vaccine No Hx Pneumococcal Vaccination Yes Allergies/Adverse Reactions: Allergies levofloxacin [From Levaquin] Allergy (Intermediate, Verified 10/27/19 15:02) TONGUE SWOLLEN, RASH amlodipine besylate [From Norvasc] Allergy (Mild, Verified 10/27/19 15:02) SWELLING amoxicillin [Amoxicillin] Allergy (Mild, Verified 10/27/19 15:02) SWELLING ampicillin Allergy (Mild, Verified 10/27/19 15:02) SWELLING nifedipine [From Procardia] Allergy (Mild, Verified 10/27/19 15:02) SWELLING sulfamethoxazole [From Bactrim] Allergy (Mild, Verified 10/27/19 15:02) SWELLING trimethoprim [From Bactrim] Allergy (Mild, Verified 10/27/19 15:02) SWELLING peanut Allergy (Verified 10/27/19 15:02) soybean Allergy (Verified 10/27/19 15:02) wheat Allergy (Verified 10/27/19 15:02) tetracycline [Tetracycline] Adverse Reaction (Intermediate, Verified 10/27/19 15:02) TACHYCARDIA acetaminophen [From Percocet] Adverse Reaction (Mild, Verified 10/27/19 15:02) PROJECTILE VOMITING aspirin Adverse Reaction (Mild, Verified 10/27/19 15:02) Vomiting azithromycin [From Zithromax Z-Bryon] Adverse Reaction (Mild, Verified 10/27/19 15:02) RASH, NAUSEA codeine Adverse Reaction (Mild, Verified 10/27/19 15:02) Nausea hydrocodone bitartrate [From Vicodin] Adverse Reaction (Mild, Verified 10/27/19 15:02) NAUSEA, PROJECTILE VOMITING ibuprofen Adverse Reaction (Mild, Verified 10/27/19 15:02) Vomiting latex Adverse Reaction (Mild, Verified 10/27/19 15:02) RASH oxycodone HCl [From Percocet] Adverse Reaction (Mild, Verified 10/27/19 15:02) PROJECTILE VOMITING sulindac [From Clinoril] Adverse Reaction (Mild, Verified 10/27/19 15:02) Nausea ipratropium-bromide Allergy (Severe, Uncoded 10/27/19 15:02) Tongue Swelling, Chest tightness Home Medications: HOME MEDICATIONS Cetirizine HCl [Zyrtec] 5 mg PO DAILY 03/11/14 [Last Taken Unknown] Multivitamins [Multivitamin Jose Guadalupe] 1 cap PO DAILY 03/11/14 [Last Taken Unknown] Lutein/Zeaxanthin 1 cap PO DAILY 07/20/14 [Last Taken Unknown] albuterol sulfate 90 mcg/actuation aerosol inhaler 2 puff INHALATION Q3H PRN #18 g 01/13/19 [Last Taken Unknown] omeprazole magnesium 20 mg tablet,delayed release 20 mg PO DAILY #90 tab 01/13/19 [Last Taken Unknown] acetaminophen 650 mg tablet,extended release 650 mg PO BID tab 04/28/19 [Last Taken Unknown] fluticasone 250 mcg-salmeterol 50 mcg/dose blistr powdr for inhalation 1 inh IH BID #60 ea 09/22/19 [Last Taken Unknown] hydrochlorothiazide 12.5 mg tablet 6.25 mg PO DAILY #45 tab 09/22/19 [Last Taken Unknown] losartan 25 mg tablet 25 mg PO DAILY #90 tab 09/22/19 [Last Taken Unknown] cefdinir 300 mg capsule 300 mg PO BID 4 Days #8 cap 10/25/19 [Last Taken Unknow n] prednisone 20 mg tablet 40 mg PO DAILY 5 Days #10 tab 10/25/19 [Last Taken Unknown] - History of Present Illness Narrative: [facility] c/o dyspnea had see dr ward and started on atb and prednisone, became worse today Severity: moderate Treatment [employer]VELING [employer]ES [employer]PRESENTATIVE: paramedics, albuterol Initiating event: Reports: upper resp illness Frequency of episodes: Reports: frequent episodes Modifying Factors - (Improves): Reports: albuterol Modifying Factors (Worsens): Reports: activity Associated Symptoms-Dyspnea: Reports: fever/chills, palpitations, dizziness, lightheadedness Prior Treatment: Reports: recently seen, treated by physician Review of Systems - Review of Systems Constitutional: Present: See HPI, weakness, fatigue, malaise EYE: Present: no symptoms reported ENT: Present: nose pain, nose congestion Respiratory: Present: See HPI, shortness of breath, cough, orthopnea, wheezing Cardiology: Present: no symptoms reported Gastrointestinal/Abdominal: Present: no symptoms reported Genitourinary: Present: no symptoms reported Musculoskeletal: Present: no symptoms reported Skin: Present: no symptoms reported Neurological: Present: no symptoms reported Endocrine: Present: no symptoms reported Hematologic/Lymphatic: Present: no symptoms reported Psych: Present: no symptoms reported All Other Systems: All systems neg except as marked Medical History (Last Reviewed 10/27/19 @ 15:02 by Faviola Medina RN) COPD (chronic obstructive pulmonary disease) (Chronic) Onset Date: ~04/23/19 Improved and is stable Has done well with pulmonary rehab Hypertension (Chronic) Onset Date: Unknown Cervical lymphadenopathy (Chronic) Onset Date: ~03/2013 Node on the right side of the neck has seen ENT Dr. Matthews was told it was benign lesion Asthma, intermittent (Chronic) Onset Date: ~03/2013 Arthritis (Chronic) Onset Date: Unknown Scoliosis Onset Date: Unknown Otitis media Onset Date: ~12/2012 Shoulder dislocation Onset Date: ~2014 Spondylolysis of lumbosacral region Onset Date: Unknown Uterovaginal prolapse, incomplete Onset Date: ~2010 Surgical History: Surgical History (Last Reviewed 10/27/19 @ 15:02 by Faviola Medina RN) H/O laparoscopy Onset Date: ~08/2008 H/O tubal ligation Onset Date: ~1979 History of carpal tunnel release Onset Date: ~04/2010 History of right salpingo-oophorectomy Onset Date: ~08/2008 History of tonsillectomy Onset Date: ~1950 History of total vaginal hysterectomy (TVH) Onset Date: ~04/2010 [place] teeth extracted Onset Date: ~1963 utero sacral ligament fixation Onset Date: ~04/2010 H/O colonoscopy with polypectomy Onset Date: ~03/2014 H/O cystoscopy Onset Date: ~04/2010 Family History: Family History (Last Reviewed 10/27/19 @ 15:02 by Faviola Medina RN) Father Hypertension Glaucoma CAD (coronary artery disease) Brother Hypertension Diabetes Osteoarthritis Sister Osteoarthritis Hyperthyroidism Mother Hypothyroidism COPD (chronic obstructive pulmonary disease) Uncle Osteoarthritis Social History: (Last Reviewed 10/27/19 @ 15:02 by Faviola Medina RN) Social History: adopted: No foster care: No intermediate: No Marital status: lives independently: Yes household members: spouse caregiver/support person: Yes current occupation: retired Highest education level completed: high school graduate Service: No Tobacco: Smoking Status: Former smoker Alcohol: alcohol intake: former Substance Use: substance use type: does not use Dietary Habits: caffeine: Yes Type: coffee Personal Safety: victim of physical abuse: No victim of emotional abuse: No Physical Exam - Physical Exam General Appearance: Present: moderate distress, anxious Head Exam: Present: normal inspection, no evidence of injury Eye Exam: Normal inspection: bilateral, PERRL: bilateral, EOMI: bilateral Ears, Nose, Throat: Present: normal ENT inspection, normal pharynx Neck: Present: normal inspection, nontender Respiratory: Present: respiratory distress, accessory muscle use, decreased breath sounds, rales, rhonchi, wheezing Cardiovascular/Chest: Present: tachycardia Gastrointestinal/Abdominal: Present: normal bowel sounds, nontender, nondistended, soft, no organomegaly Back Exam: Present: normal inspection, normal range of motion, no CVA tenderness, no vertebral tenderness Extremity Exam: Present: normal inspection, non-tender Neurological Exam: Present: alert, oriented, normal mood/affect, no motor/sensory deficits Skin Exam: Present: normal color, warm/dry Lymphatic Exam: Present: no adenopathy Progress - Results and Orders Patient's Lab Results:: I have reviewed the patient's lab results. - Vital Signs Patient's Vital Signs:: I have reviewed the patient's vital signs. Vital Signs: Vital Signs 10/27/19 15:02 10/27/19 15:07 Temperature 36.9 C Pulse Rate 120 H 121 H Respiratory Rate 28 H Blood Pressure 212/116 H O2 Sat by Pulse Oximetry 98 - EKG EKG #1 EKG: supraventricular tachycardia - X-Ray X-Ray #1 X-Ray: chest - copd acute exacerbation - Progress/Reassessment Chief Complaint: Dyspnea Progress:: Unchanged Plan - Plan Plan: to be admitted Departure Clinical Impression: COPD (chronic obstructive pulmonary disease), Hyponatremia - Departure Disposition: Short Term Hospital Inpatient Condition: Serious
[2019-10-27 15:41] LABS: Hematocrit 40.7 % (37.0-47.0); Hemoglobin 14.3 gm/dL (12.5-16.0); Mean Cell Volume 90.4 fl (78-100); Mean Corpuscular Hemoglobin 31.8 pg (27-31); Mean Corpuscular Hgb Conc 35.1 g/dl (32-36); Mean Platelet Volume 8.8 fl (8-12.5); Neutrophil % 80.4 % (42-75.0); Platelet Count 303 K/mm3 (150-450); Red Cell Distribution Width 12.4 % (11.5-14.0); White Blood Count 9.9 K/mm3 (4.0-10.5)
[2019-10-27 15:58] LABS: Troponin I Less than 0.017 ng/mL (0.00-0.10)
[2019-10-27 15:59] LABS: ALT 51 U/L (19-67); AST 30 U/L (0-48); Alkaline Phosphatase * 67 U/L (50-170); BNP * 385 pg/mL (5-325); BUN/Creatinine Ratio 19.2 (9.0-21.6); Bilirubin, Total 0.6 mg/dL (0.0-1.1); Blood Urea Nitrogen 10 mg/dL (3-23); Ca. Corrected For Albumin 8.6 mg/dL (8.4-10.2); Calcium * 8.9 mg/dL (7.9-10.9); Carbon Dioxide 25.1 mmol/L (24-32.6); Chloride 83 mmol/L (97-106); Glucose * 140 mg/dL (70-110); Potassium 4.1 mmol/L (3.4-4.6); Total Protein 7.1 gm/dL (6.2-8.2)
[2019-10-27 16:01] LABS: Sodium 118 mmol/L (132-142)
[2019-10-27] MEDS: SODIUM CHLORIDE 3 % 500 ML IV SCH (16:28)
[2019-10-27] MEDS ORDERED: LEVOFLOXACIN IN DEXTROSE 5 % 500 MG/100 ML BAG IV SCH (17:00)
[2019-10-27] MEDS ORDERED: ALBUTEROL SULFATE 2.5 MG/0.5 ML VIAL.NEB IH PRN (17:00)
--- NOTE | 2019-10-27 17:11 | HP ---
Chief Complaint - Chief Complaint Date of Service: 10/27/19 Time of Service: 16:35 Chief Complaint: Shortness of breath and productive cough History of Present Illness: 74-year-old female with a past medical history of COPD on oxygen at night with 2 L via nasal cannula, hypertension, arthritis, asthma, scoliosis presents from home with complaints of shortness of breath x1 day. Patient states her symptoms initially began about 1 week ago when she developed shortness of breath and productive cough. She started taking her granddaughters cefdinir and was seen for a sick visit in my office 2 days ago. I continued her on cefdinir and started her on prednisone 40 mg daily for COPD exacerbation. She states she was feeling better until today when she started any suddenly started feeling worsening shortness of breath and EMS was called. In the emergency department she is found to have hyponatremia of 118, chest x-ray is negative for any acute cardiopulmonary disease, ABG shows a pCO2 of 34.8, PO2 of 56.9, bicarb of 24, pH 7.46, O2 sat 91.2. She is being admitted for COPD exacerbation and hyponatremia. She has been started on Solu-Medrol 125 mg IV, hypertonic saline at 30 cc/h and Levaquin in the emergency department. Medical History (Last Reviewed 10/27/19 @ 15:02 by Faviola Medina RN) COPD (chronic obstructive pulmonary disease) (Chronic) Onset Date: ~04/23/19 Improved and is stable Has done well with pulmonary rehab Hypertension (Chronic) Onset Date: Unknown Cervical lymphadenopathy (Chronic) Onset Date: ~03/2013 Node on the right side of the neck has seen ENT Dr. Matthews was told it was benign lesion Asthma, intermittent (Chronic) Onset Date: ~03/2013 Arthritis (Chronic) Onset Date: Unknown Scoliosis Onset Date: Unknown Otitis media Onset Date: ~12/2012 Shoulder dislocation Onset Date: ~2014 Spondylolysis of lumbosacral region Onset Date: Unknown Uterovaginal prolapse, incomplete Onset Date: ~2010 Surgical History: Surgical History (Last Reviewed 10/27/19 @ 15:02 by Faviola Medina RN) H/O laparoscopy Onset Date: ~08/2008 H/O tubal ligation Onset Date: ~1979 History of carpal tunnel release Onset Date: ~04/2010 History of right salpingo-oophorectomy Onset Date: ~08/2008 History of tonsillectomy Onset Date: ~1950 History of total vaginal hysterectomy (TVH) Onset Date: ~04/2010 [place] teeth extracted Onset Date: ~1963 utero sacral ligament fixation Onset Date: ~04/2010 H/O colonoscopy with polypectomy Onset Date: ~03/2014 H/O cystoscopy Onset Date: ~04/2010 Family History: Family History (Last Reviewed 10/27/19 @ 15:02 by Faviola Medina RN) Father Hypertension Glaucoma CAD (coronary artery disease) Brother Hypertension Diabetes Osteoarthritis Sister Osteoarthritis Hyperthyroidism Mother Hypothyroidism COPD (chronic obstructive pulmonary disease) Uncle Osteoarthritis Social History: (Last Reviewed 10/27/19 @ 15:02 by Faviola Medina RN) Social History: adopted: No foster care: No half-way: No Marital status: lives independently: Yes household members: spouse caregiver/support person: Yes current occupation: retired Highest education level completed: high school graduate Service: No Tobacco: Smoking Status: Former smoker Alcohol: alcohol intake: former Substance Use: substance use type: does not use Dietary Habits: caffeine: Yes Type: coffee Personal Safety: victim of physical abuse: No victim of emotional abuse: No Review Of Systems (GEN) - Review of Systems Generalized/Overall Review: Absent: Chills, Fever Respiratory: Present: Cough, Shortness of Breath Cardiac: Absent: Chest Pain Abdominal: Absent: Abdominal Pain Misc: All systems neg except as marked Immunizations: IMMUNIZATION HX Immunizations Up to Date Yes History of Influenza Vaccine No Hx Pneumococcal Vaccination Yes Allergies/Adverse Reactions: Allergies Allergy/AdvReac Type Severity Reaction Status Date / Time levofloxacin [From Levaquin] Allergy Intermediate TONGUE Verified 10/27/19 15:02 SWOLLEN, RASH amlodipine besylate Allergy Mild SWELLING Verified 10/27/19 15:02 [From Norvasc] amoxicillin [Amoxicillin] Allergy Mild SWELLING Verified 10/27/19 15:02 ampicillin Allergy Mild SWELLING Verified 10/27/19 15:02 nifedipine [From Procardia] Allergy Mild SWELLING Verified 10/27/19 15:02 sulfamethoxazole Allergy Mild SWELLING Verified 10/27/19 15:02 [From Bactrim] trimethoprim [From Bactrim] Allergy Mild SWELLING Verified 10/27/19 15:02 peanut Allergy Verified 10/27/19 15:02 soybean Allergy Verified 10/27/19 15:02 wheat Allergy Verified 10/27/19 15:02 tetracycline [Tetracycline] AdvReac Intermediate TACHYCARDIA Verified 10/27/19 15:02 acetaminophen [From Percocet] AdvReac Mild PROJECTILE Verified 10/27/19 15:02 VOMITING aspirin AdvReac Mild Vomiting Verified 10/27/19 15:02 azithromycin AdvReac Mild RASH, Verified 10/27/19 15:02 [From Zithromax Z-Bryon] NAUSEA codeine AdvReac Mild Nausea Verified 10/27/19 15:02 hydrocodone bitartrate AdvReac Mild NAUSEA, Verified 10/27/19 15:02 [From Vicodin] PROJECTILE VOMITING ibuprofen AdvReac Mild Vomiting Verified 10/27/19 15:02 latex AdvReac Mild RASH Verified 10/27/19 15:02 oxycodone HCl [From Percocet] AdvReac Mild PROJECTILE Verified 10/27/19 15:02 VOMITING sulindac [From Clinoril] AdvReac Mild Nausea Verified 10/27/19 15:02 ipratropium-bromide Allergy Severe Tongue Uncoded 10/27/19 15:02 Swelling, Chest tightness Home Medications: HOME MEDICATIONS Cetirizine HCl [Zyrtec] 5 mg PO DAILY 03/11/14 [Last Taken Unknown] Multivitamins [Multivitamin Jose Guadalupe] 1 cap PO DAILY 03/11/14 [Last Taken Unknown] Lutein/Zeaxanthin 1 cap PO DAILY 07/20/14 [Last Taken Unknown] albuterol sulfate 90 mcg/actuation aerosol inhaler 2 puff INHALATION Q3H PRN #18 g 01/13/19 [Last Taken Unknown] omeprazole magnesium 20 mg tablet,delayed release 20 mg PO DAILY #90 tab [Last Taken Unknown] acetaminophen 650 mg tablet,extended release 650 mg PO BID tab 04/28/19 [Last Taken Unknown] fluticasone 250 mcg-salmeterol 50 mcg/dose blistr powdr for inhalation 1 inh IH BID #60 ea 09/22/19 [Last Taken Unknown] hydrochlorothiazide 12.5 mg tablet 6.25 mg PO DAILY #45 tab 09/22/19 [Last Taken Unknown] losartan 25 mg tablet 25 mg PO DAILY #90 tab 09/22/19 [Last Taken Unknown] cefdinir 300 mg capsule 300 mg PO BID 4 Days #8 cap 10/25/19 [Last Taken Unknown] prednisone 20 mg tablet 40 mg PO DAILY 5 Days #10 tab 10/25/19 [Last Taken Unknown] Exam - Exam Vital Signs: Vital Signs - Last Taken Temp 36.9 C 10/27/19 15:02 Pulse 111 H 10/27/19 16:50 Resp 22 H 10/27/19 16:50 BP 149/99 H 10/27/19 16:50 Pulse Ox 92 L 10/27/19 16:50 Constitutional: Present: Alert, Cooperative, Well developed, Well nourished, Elderly ENT Exam: Present: hearing grossly normal, moist mucous membranes Eye Exam: bilateral eye: normal inspection, PERRL, EOMI Neck: Present: non-tender. Absent: lymphadenopathy (R), lymphadenopathy (L) Back Exam: Present: normal inspection, no CVA tenderness, no vertebral tenderness Respiratory: Present: lungs clear, no accessory muscle use, decreased breath sounds - Throughout all lung [place], wheezing - Bilateral throughout all lung [place] Cardiovascular/Chest: Present: normal peripheral pulses, regular rate, rhythm, no edema, no murmur Peripheral Pulses: dorsalis-pedis (R): 1+, dorsalis-pedis (L): 1+ Abdomen: Present: Normal bowel sounds, soft, nontender Extremity: Present: no pedal edema Skin Exam: Present: normal color, warm/dry Neurologic: Present: alert, normal mood/affect Appearance: Present: appropriate appearance, appropriate insight Eye contact: Present: cooperative, good eye contact, normal speech Thoughts: Present: normal thought pattern, normal mood /affect Diagnostic Studies: Abnormal Lab Results 10/27/19 10/27/19 10/27/19 Range/Units 15:26 15:36 15:36 MCH 31.8 H (27-31) pg Neutrophils % 80.4 H (42-75.0) % Lymphocytes % 16.9 L (20-51) % Neutrophils # 8.0 H (1.3-6.0) K/mm3 pO2 56.9 L (83.0-108.0) mmHg Total CO2 25.1 H (19.0-24.0) mmol/L ABG pH 7.46 H (7.35-7.45) ABG O2 Sat (Measured) 91.2 L (94.0-98.0) % Sodium 118 L* D (132-142) mmol/L Plasma Sodium 119 L* (130-142) mmol/L Chloride 83 L (97-106) mmol/L Anion Gap 14.0 H (6.8-13.8) mmol/L Random Glucose 140 H (70-110) mg/dL B-Natriuretic Peptide 385 H (5-325) pg/mL Laboratory Results WBC 9.9 K/mm3 (4.0-10.5) 10/27/19 15:36 RBC 4.50 M/mm3 (4.2-5.4) 10/27/19 15:36 Hgb 14.3 gm/dL (12.5-16.0) 10/27/19 15:36 Hct 40.7 % (37.0-47.0) 10/27/19 15:36 MCV 90.4 fl (78-100) 10/27/19 15:36 MCH 31.8 pg (27-31) H 10/27/19 15:36 MCHC 35.1 g/dl (32-36) 10/27/19 15:36 RDW 12.4 % (11.5-14.0) 10/27/19 15:36 Plt Count 303 K/mm3 (150-450) 10/27/19 15:36 MPV 8.8 fl (8-12.5) 10/27/19 15:36 Immature Gran % (Auto) 0.30 % (0.001-0.429) 10/27/19 15:36 Immature Gran # (Auto) 0.03 K/mm3 (0.000-0.0310) 10/27/19 15:36 Neutrophils % 80.4 % (42-75.0) H 10/27/19 15:36 Lymphocytes % 16.9 % (20-51) L 10/27/19 15:36 Monocytes % 2.3 % (0.0-9) 10/27/19 15:36 Eosinophils % 0.0 % (0.0-3.0) 10/27/19 15:36 Basophils % 0.1 % (0.0-1.0) 10/27/19 15:36 Nucleated RBC % 0.0 k/mm3 (0-1) 10/27/19 15:36 Neutrophils # 8.0 K/mm3 (1.3-6.0) H 10/27/19 15:36 Lymphocytes # 1.68 k/mm3 (1.5-3.5) 10/27/19 15:36 Monocytes # 0.2 k/mm3 (0.0-1.0) 10/27/19 15:36 Eosinophils # 0.0 k/mm3 (0.0-0.7) 10/27/19 15:36 Absolute Basophils 0.0 k/mm3 (0.0-0.1) 10/27/19 15:36 pCO2 34.8 mmHg (32.0-45.0) 10/27/19 15:26 pO2 56.9 mmHg (83.0-108.0) L 10/27/19 15:26 HCO3 24.0 mmol/L (21.0-28.0) 10/27/19 15: Total CO2 25.1 mmol/L (19.0-24.0) H 10/27/19 15:26 Base Excess 0.7 mmol/L (-2.0-3.0) 10/27/19 15:26 ABG pH 7.46 (7.35-7.45) H 10/27/19 15:26 ABG O2 Sat (Measured) 91.2 % (94.0-98.0) L 10/27/19 15:26 Sodium 118 mmol/L (132-142) L* D 10/27/19 15:36 Plasma Sodium 119 mmol/L (130-142) L* 10/27/19 15:36 Potassium 4.1 mmol/L (3.4-4.6) 10/27/19 15:36 Chloride 83 mmol/L (97-106) L 10/27/19 15:36 Carbon Dioxide 25.1 mmol/L (24-32.6) 10/27/19 15:36 Anion Gap 14.0 mmol/L (6.8-13.8) H 10/27/19 15:36 BUN 10 mg/dL (3-23) 10/27/19 15:36 Creatinine 0.52 mg/dL (0.4-1.4) 10/27/19 15:36 Est GFR (Non-Af Amer) 123 mL/min (60-130) 10/27/19 15:36 BUN/Creatinine Ratio 19.2 (9.0-21.6) 10/27/19 15:36 Random Glucose 140 mg/dL (70-110) H 10/27/19 15:36 Calcium 8.9 mg/dL (7.9-10.9) 10/27/19 15:36 Calcium Adj for Albumin 8.6 mg/dL (8.4-10.2) 10/27/19 15:36 Total Bilirubin 0.6 mg/dL (0.0-1.1) 10/27/19 15:36 AST 30 U/L (0-48) 10/27/19 15:36 ALT 51 U/L (19-67) 10/27/19 15:36 Alkaline Phosphatase 67 U/L (50-170) 10/27/19 15:36 Troponin I Less than 0.017 ng/mL (0.00-0.10) 10/27/19 15:36 B-Natriuretic Peptide 385 pg/mL (5-325) H 10/27/19 15:36 Total Protein 7.1 gm/dL (6.2-8.2) 10/27/19 15:36 Albumin 4.0 gm/dl (3.4-5.0) 10/27/19 15:36 Assessment/Plan - Narrative Narrative: 74-year-old female with a past medical history of COPD on oxygen at night with 2 L via nasal cannula, hypertension, arthritis, asthma, scoliosis presents from home with complaints of shortness of breath x1 day. Patient states her symptoms initially began about 1 week ago when she developed shortness of breath and productive cough. In the emergency department she is found to have hyponatremia of 118, chest x-ray is negative for any acute cardiopulmonary disease, ABG shows a pCO2 of 34.8, PO2 of 56.9, bicarb of 24, pH 7.46, O2 sat 91.2. She is being admitted for COPD exacerbation and hyponatremia. She has been started on Solu-Medrol 125 mg IV, hypertonic saline at 30 cc/h and Levaquin in the emergency department. Evy #1 Continue with Solu-Medrol 60 mg IV twice a day #2 continue with Levaquin 500 mg daily #3 continue with hypertonic saline at 30 cc/h, check sodium every 2-4 hours. Goal for correction is 4-6 mEq/L per 24-hour time. #4 duo nebs as needed #5 DVT prophylaxis with Lovenox #6 start guaifenesin as needed #7 resume home medications for comorbidities - Assessment/Plan (1) Hyponatremia Problem: Acute (2) COPD exacerbation Problem: Acute (3) Hypoxemia Problem: Acute (4) Hypertension Problem: Chronic Qualifiers: Hypertension type: essential hypertension (5) Arthritis Problem: Chronic
[2019-10-27] MEDS ORDERED: guaiFENesin 100 MG/5 ML SYRUP PO PRN (17:13)
[2019-10-27] MEDS: ENOXAPARIN SODIUM 40 MG/0.4 ML SYRG SC SCH (17:37)
[2019-10-27] MEDS: METHYLPREDNISOLONE SOD SUCC/PF 125 MG/2 ML VIAL IV SCH ×2 (17:43→23:04)
[2019-10-27] MEDS: ALBUTEROL SULFATE/IPRATROPIUM 3 ML NEBU IH PRN (19:40)
[2019-10-27] MEDS: ACETAMINOPHEN 650 MG TABLET PO SCH (20:05)
[2019-10-27] MEDS: FLUTICASONE PROPION/SALMETEROL 14 PUFF DISK.W.DEV IH SCH (20:05)
[2019-10-27] MEDS ORDERED: METHYLPREDNISOLONE SOD SUCC/PF 125 MG/2 ML VIAL IV SCH (21:00)
[2019-10-28] MEDS: METHYLPREDNISOLONE SOD SUCC/PF 125 MG/2 ML VIAL IV SCH ×4 (04:00→23:03)
[2019-10-28] MEDS: PANTOPRAZOLE SODIUM 20 MG TABLET.DR PO SCH (06:37)
[2019-10-28 06:42] LABS: Hematocrit 37.5 % (37.0-47.0); Hemoglobin 12.9 gm/dL (12.5-16.0); Mean Cell Volume 89.9 fl (78-100); Mean Corpuscular Hemoglobin 30.9 pg (27-31); Mean Corpuscular Hgb Conc 34.4 g/dl (32-36); Mean Platelet Volume 9.1 fl (8-12.5); Neutrophil # 4.3 K/mm3 (1.3-6.0); Neutrophil % 70.2 % (42-75.0); Platelet Count 285 K/mm3 (150-450); Red Blood Count 4.17 M/mm3 (4.2-5.4); Red Cell Distribution Width 12.2 % (11.5-14.0); White Blood Count 6.2 K/mm3 (4.0-10.5)
[2019-10-28 06:53] LABS: Albumin * 3.3 gm/dl (3.4-5.0); Anion Gap 9.2 mmol/L (6.8-13.8); BUN/Creatinine Ratio 12.2 (9.0-21.6); Bilirubin, Total 0.4 mg/dL (0.0-1.1); Ca. Corrected For Albumin 8.5 mg/dL (8.4-10.2); Calcium * 8.3 mg/dL (7.9-10.9); Carbon Dioxide 28.9 mmol/L (24-32.6); Potassium 4.1 mmol/L (3.4-4.6); Total Protein 6.2 gm/dL (6.2-8.2)
[2019-10-28] MEDS: ALBUTEROL SULFATE/IPRATROPIUM 3 ML NEBU IH PRN (07:05)
[2019-10-28] MEDS: LORATADINE 10 MG TABLET PO SCH (08:44)
[2019-10-28] MEDS: LOSARTAN POTASSIUM 50 MG TABLET PO SCH (08:44)
[2019-10-28] MEDS: MULTIVITAMINS 1 CAP CAPSULE PO SCH (08:44)
[2019-10-28] MEDS: HYDROCHLOROTHIAZIDE 25 MG TABLET PO SCH (08:45)
[2019-10-28] MEDS: FLUTICASONE PROPION/SALMETEROL 14 PUFF DISK.W.DEV IH SCH ×2 (08:46→20:47)
[2019-10-28] MEDS: ACETAMINOPHEN 650 MG TABLET PO SCH ×2 (08:53→20:47)
--- NOTE | 2019-10-28 10:00 | PN ---
Subjective - Date and Time Seen Date: 10/28/19 Time: 08:49 Subjective Narrative: Overall the patient states she feels better than today. She does continue to have shortness of breath but feels it has improved since her admission yesterday. She continues to have a cough that is mildly productive. She is tolerating her diet. Objective - Review of Systems Generalized/Overall Review: Denies: Chills, Fever Respiratory: Reports: Cough, Shortness of Breath Cardiac: Denies: Chest Pain Abdominal: Denies: Abdominal Pain Misc: All systems neg except as marked - Vitals Vitals: Last Vital Signs Temp 36.6 C 10/28/19 06:00 Pulse 113 H 10/28/19 08:44 Resp 20 10/28/19 07:15 BP 160/94 H 10/28/19 08:44 Pulse Ox 92 L 10/28/19 09:29 - Abnormal Lab Findings Abnormal Lab Findings: Abnormal Lab Results 10/27/19 10/27/19 10/27/19 Range/Units 15:26 15:36 15:36 RBC (4.2-5.4) M/mm3 MCH 31.8 H (27-31) pg Immature Gran % (Auto) (0.001-0.429) % Neutrophils % 80.4 H (42-75.0) % Lymphocytes % 16.9 L (20-51) % Neutrophils # 8.0 H (1.3-6.0) K/mm3 pO2 56.9 L (83.0-108.0) mmHg Total CO2 25.1 H (19.0-24.0) mmol/L ABG pH 7.46 H (7.35-7.45) ABG O2 Sat (Measured) 91.2 L (94.0-98.0) % Sodium 118 L* D (132-142) mmol/L Plasma Sodium 119 L* (130-142) mmol/L Chloride 83 L (97-106) mmol/L Anion Gap 14.0 H (6.8-13.8) mmol/L Est GFR (Non-Af Amer) (60-130) mL/min Random Glucose 140 H (70-110) mg/dL B-Natriuretic Peptide 385 H (5-325) pg/mL Albumin (3.4-5.0) gm/dl 10/27/19 10/27/19 10/27/19 Range/Units 18:26 20:00 22:11 RBC (4.2-5.4) M/mm3 MCH (27-31) pg Immature Gran % (Auto) (0.001-0.429) % Neutrophils % (42-75.0) % Lymphocytes % (20-51) % Neutrophils # (1.3-6.0) K/mm3 pO2 (83.0-108.0) mmHg Total CO2 (19.0-24.0) mmol/L ABG pH (7.35-7.45) ABG O2 Sat (Measured) (94.0-98.0) % Sodium 119 L 119 L 124 L (132-142) mmol/L Plasma Sodium (130-142) mmol/L Chloride (97-106) mmol/L Anion Gap (6.8-13.8) mmol/L Est GFR (Non-Af Amer) (60-130) mL/min Random Glucose (70-110) mg/dL B-Natriuretic Peptide (5-325) pg/mL Albumin (3.4-5.0) gm/dl 10/28/19 10/28/19 Range/Units 06:36 06:36 RBC 4.17 L (4.2-5.4) M/mm3 MCH (27-31) pg Immature Gran % (Auto) 0.50 H (0.001-0.429) % Neutrophils % (42-75.0) % Lymphocytes % (20-51) % Neutrophils # (1.3-6.0) K/mm3 pO2 (83.0-108.0) mmHg Total CO2 (19.0-24.0) mmol/L ABG pH (7.35-7.45) ABG O2 Sat (Measured) (94.0-98.0) % Sodium 124 L (132-142) mmol/L Plasma Sodium 125 L (130-142) mmol/L Chloride 90 L (97-106) mmol/L Anion Gap (6.8-13.8) mmol/L Est GFR (Non-Af Amer) 162 H D (60-130) mL/min Random Glucose 139 H (70-110) mg/dL B-Natriuretic Peptide (5-325) pg/mL Albumin 3.3 L (3.4-5.0) gm/dl - Exam Constitutional: Present: Alert, Cooperative, Well developed, Well nourished, No distress, Elderly ENT Exam: Present: hearing grossly normal Neck: Present: non-tender, supple. Absent: lymphadenopathy (R), lymphadenopathy (L) Respiratory: Present: no respiratory distress, no accessory muscle use, decreased breath sounds - She does have diminished breath sounds throughout but has improved air flow since yesterday., wheezing - Mild expiratory wheezes noted throughout all lung [place]. Improved since yesterday.. Absent: crackles Cardiovascular/Chest: Present: normal peripheral pulses, regular rate, rhythm, no edema, no murmur Abdomen: Present: Normal bowel sounds, soft, nontender Extremity: Present: non-tender, no pedal edema Skin Exam: Present: normal color, warm/dry Neurologic: Present: alert, normal mood/affect Appearance: Present: appropriate appearance, appropriate insight Eye contact: Present: cooperative, good eye contact Thoughts: Present: normal thought pattern, normal mood /affect Assessment/Plan Plan Narrative: 74-year-old female with a past medical history of COPD on oxygen at night with 2 L via nasal cannula, hypertension, arthritis, asthma, scoliosis presents from home with complaints of shortness of breath x1 day. Patient states her symptoms initially began about 1 week ago when she developed shortness of breath and productive cough. In the emergency department she is found to have hypona tremia of 118, chest x-ray is negative for any acute cardiopulmonary disease, ABG shows a pCO2 of 34.8, PO2 of 56.9, bicarb of 24, pH 7.46, O2 sat 91.2. She is being admitted for COPD exacerbation and hyponatremia. She has been started on Solu-Medrol 125 mg IV, hypertonic saline at 30 cc/h and Levaquin in the emergency department. Evy #1 Continue with Solu-Medrol 62.5 mg IV every 6 hours #2 continue ceftriaxone 1 g IV daily day 2. She did not receive the levofloxacin due to history of allergies #3 Sodium is improved to 124 today. I will stop the hyper protonic saline and start her on sodium tablets 2 g, 3 times daily. I will also start a fluid restriction of 1200 cc/day. I will recheck sodium later this afternoon around 4 PM. #4 duo nebs as needed #5 DVT prophylaxis with Lovenox #6 start guaifenesin as needed #7 resume home medications for comorbidities - Problems/Diagnosis (1) Hyponatremia Problem: Acute (2) COPD exacerbation Problem: Acute (3) Hypoxemia Problem: Acute (4) Hypertension Problem: Chronic Qualifiers: Hypertension type: essential hypertension (5) Arthritis Problem: Chronic
[2019-10-28] MEDS: SODIUM CHLORIDE 1 GM TABLET PO SCH ×3 (10:12→17:00)
[2019-10-28] MEDS: ENOXAPARIN SODIUM 40 MG/0.4 ML SYRG SC SCH (16:49)
[2019-10-29] MEDS: METHYLPREDNISOLONE SOD SUCC/PF 125 MG/2 ML VIAL IV SCH ×2 (05:14→10:12)
[2019-10-29 06:30] LABS: Hematocrit 42.2 % (37.0-47.0); Hemoglobin 14.5 gm/dL (12.5-16.0); Mean Cell Volume 92.3 fl (78-100); Mean Corpuscular Hemoglobin 31.7 pg (27-31); Mean Corpuscular Hgb Conc 34.4 g/dl (32-36); Neutrophil # 11.2 K/mm3 (1.3-6.0); Neutrophil % 78.9 % (42-75.0); Platelet Count 318 K/mm3 (150-450); Red Blood Count 4.57 M/mm3 (4.2-5.4); Red Cell Distribution Width 12.6 % (11.5-14.0); White Blood Count 14.1 K/mm3 (4.0-10.5)
[2019-10-29 06:41] LABS: Albumin * 3.7 gm/dl (3.4-5.0); Anion Gap 10.2 mmol/L (6.8-13.8); BUN/Creatinine Ratio 23.1 (9.0-21.6); Bilirubin, Total 0.3 mg/dL (0.0-1.1); Ca. Corrected For Albumin 8.5 mg/dL (8.4-10.2); Calcium * 8.6 mg/dL (7.9-10.9); Carbon Dioxide 26.9 mmol/L (24-32.6); Potassium 4.1 mmol/L (3.4-4.6); Total Protein 6.9 gm/dL (6.2-8.2)
[2019-10-29] MEDS: PANTOPRAZOLE SODIUM 20 MG TABLET.DR PO SCH (06:47)
[2019-10-29] MEDS: FLUTICASONE PROPION/SALMETEROL 14 PUFF DISK.W.DEV IH SCH ×2 (08:24→21:11)
[2019-10-29] MEDS: SODIUM CHLORIDE 1 GM TABLET PO SCH ×3 (08:24→16:34)
[2019-10-29] MEDS: ACETAMINOPHEN 650 MG TABLET PO SCH ×2 (08:24→21:11)
[2019-10-29] MEDS: LOSARTAN POTASSIUM 50 MG TABLET PO SCH (08:25)
[2019-10-29] MEDS: HYDROCHLOROTHIAZIDE 25 MG TABLET PO SCH (08:25)
[2019-10-29] MEDS: MULTIVITAMINS 1 CAP CAPSULE PO SCH (08:25)
[2019-10-29] MEDS: LORATADINE 10 MG TABLET PO SCH (08:25)
[2019-10-29] MEDS: ALBUTEROL SULFATE/IPRATROPIUM 3 ML NEBU IH PRN (09:28)
[2019-10-29] MEDS: SODIUM CHLORIDE 3 % 500 ML IV SCH (10:03)
[2019-10-29] MEDS ORDERED: MORPHINE SULFATE 2 MG/ML DISP.SYRIN IV PRN (10:26)
--- NOTE | 2019-10-29 15:24 | PN ---
Subjective - Date and Time Seen Date: 10/29/19 Time: 08:53 Subjective Narrative: Overall she states she feels better. She does feel a little short of breath this morning. She vomited after her third dose of sodium tablets yesterday. She states that that was give her heartburn if she lays in a reclined position. She tolerated the sodium tablets well this morning with applesauce. She does not like the fluid restriction but is willing to be compliant. Objective - Review of Systems Generalized/Overall Review: Denies: Chills, Fever Respiratory: Reports: Cough - Nonproductive, Shortness of Breath Cardiac: Denies: Chest Pain Abdominal: Denies: Abdominal Pain Misc: All systems neg except as marked - Vitals Vitals: Last Vital Signs Temp 36.8 C 10/29/19 14:18 Pulse 108 H 10/29/19 14:18 Resp 22 H 10/29/19 14:18 BP 148/94 H 10/29/19 14:18 Pulse Ox 95 10/29/19 14:18 - Abnormal Lab Findings Abnormal Lab Findings: Abnormal Lab Results 10/28/19 10/29/19 10/29/19 Range/Units 16:28 06:25 06:25 WBC 14.1 H D (4.0-10.5) K/mm3 MCH 31.7 H (27-31) pg Immature Gran % (Auto) 0.70 H (0.001-0.429) % Immature Gran # (Auto) 0.10 H (0.000-0.0310) K/mm3 Neutrophils % 78.9 H (42-75.0) % Lymphocytes % 14.6 L (20-51) % Neutrophils # 11.2 H (1.3-6.0) K/mm3 Sodium 129 L 126 L (132-142) mmol/L Plasma Sodium 127 L (130-142) mmol/L Chloride 93 L (97-106) mmol/L BUN/Creatinine Ratio 23.1 H (9.0-21.6) Random Glucose 135 H (70-110) mg/dL - Exam Constitutional: Present: Alert, Cooperative, Well developed, Well nourished, No distress, Elderly ENT Exam: Present: hearing grossly normal Neck: Present: non-tender, supple. Absent: lymphadenopathy (R), lymphadenopathy (L) Respiratory: Present: no respiratory distress, no accessory muscle use, wheezing - Mild expiratory wheezes throughout Abdomen: Present: Normal bowel sounds, soft, nontender Extremity: Present: pedal edema Skin Exam: Present: normal color, warm/dry, diaphoresis Neurologic: Present: alert, normal mood/affect Appearance: Present: appropriate appearance, appropriate insight Eye contact: Present: cooperative Thoughts: Present: normal thought pattern, normal mood /affect - Bilateral feet Assessment/Plan Plan Narrative: 74-year-old female with a past medical history of COPD on oxygen at night with 2 L via nasal cannula, hypertension, arthritis, asthma, scoliosis presents from home with complaints of shortness of breath x1 day. Patient states her symptoms initially began about 1 week ago when she developed shortness of breath and productive cough. In the emergency department she is found to have hyponatremia of 118, chest x-ray is negative for any acute cardiopulmonary disease, ABG shows a pCO2 of 34.8, PO2 of 56.9, bicarb of 24, pH 7.46, O2 sat 91.2. She is being admitted for COPD exacerbation and hyponatremia. Overall she is doing better but her sodium needs to normalize. We also need to wean her off of the daytime oxygen prior to discharge. She uses 2 L of oxygen via nasal cannula at night which is her baseline. Evy #1 She has received 3 doses of Solu-Medrol IV so I will discontinue it today and transition her to oral prednisone 40 mg for 2 more days. #2 continue ceftriaxone 1 g IV daily day 3. She did not receive the levofloxacin due to history of allergies #3 Sodium is improved to 126 today. Continue with sodium tablets 2 g, 3 times daily and fluid restriction of 1200 cc/day. Check sodium in the morning #4 Continue with duo nebs as needed #5 DVT prophylaxis with Lovenox #6 Continue with guaifenesin as needed #7 Continue home medications for comorbidities - Problems/Diagnosis (1) Hyponatremia Problem: Acute (2) COPD exacerbation Problem: Acute (3) Hypoxemia Problem: Acute (4) Hypertension Problem: Chronic Qualifiers: Hypertension type: essential hypertension Qualified Code(s): I10 - Essential (primary) hypertension (5) Arthritis Problem: Chronic
[2019-10-29] MEDS: ENOXAPARIN SODIUM 40 MG/0.4 ML SYRG SC SCH (16:36)
[2019-10-30 06:00] LABS: Hematocrit 38.5 % (37.0-47.0); Hemoglobin 13.1 gm/dL (12.5-16.0); Mean Cell Volume 92.3 fl (78-100); Mean Corpuscular Hemoglobin 31.4 pg (27-31); Platelet Count 333 K/mm3 (150-450); Red Blood Count 4.17 M/mm3 (4.2-5.4); Red Cell Distribution Width 12.7 % (11.5-14.0); White Blood Count 16.2 K/mm3 (4.0-10.5)
[2019-10-30 06:02] LABS: Total Cells Counted 100
[2019-10-30 06:22] LABS: Lymphocyte 34 % (20-51); Monocyte 5 % (0-9); Neutrophil 61 % (42-75); Neutrophil # 9.9 K/mm3 (1.3-6.0); Platelet Estimate Normal (NORMAL); RBC Morphology Normal (NORMAL)
[2019-10-30 06:23] LABS: Albumin * 3.1 gm/dl (3.4-5.0); Anion Gap 8.4 mmol/L (6.8-13.8); BUN/Creatinine Ratio 31.5 (9.0-21.6); Bilirubin, Total 0.3 mg/dL (0.0-1.1); Ca. Corrected For Albumin 8.8 mg/dL (8.4-10.2); Calcium * 8.4 mg/dL (7.9-10.9); Carbon Dioxide 29.2 mmol/L (24-32.6); Potassium 3.6 mmol/L (3.4-4.6); Total Protein 5.7 gm/dL (6.2-8.2)
[2019-10-30] MEDS: PANTOPRAZOLE SODIUM 20 MG TABLET.DR PO SCH (06:34)
[2019-10-30] MEDS: FLUTICASONE PROPION/SALMETEROL 14 PUFF DISK.W.DEV IH SCH (08:20)
[2019-10-30] MEDS: HYDROCHLOROTHIAZIDE 25 MG TABLET PO SCH (08:21)
[2019-10-30] MEDS: LOSARTAN POTASSIUM 50 MG TABLET PO SCH (08:21)
[2019-10-30] MEDS: MULTIVITAMINS 1 CAP CAPSULE PO SCH (08:21)
[2019-10-30] MEDS: LORATADINE 10 MG TABLET PO SCH (08:21)
[2019-10-30] MEDS: ACETAMINOPHEN 650 MG TABLET PO SCH (08:22)
[2019-10-30] MEDS: SODIUM CHLORIDE 1 GM TABLET PO SCH (08:22)
--- NOTE | 2019-10-30 08:54 | DS ---
Date of Discharge:: 10/30/19 Hospital Course: History obtained from patient, and via chart review. She was started on cefdinir, but continued to have shortness of breath. She presented to the ED, and admitted for COPD exacerbation. She was then started on rocephin and IV solumedrol. She was also found to have hyponatremia, with a sodium level of 118. She was given hypertonic saline, and her sodium level improved, and was 131. She was weaned off NC, and maintained oxygenation on room air. Her shortness of breath improved, and she was comfortable going home on the day of DC. Since she did not improve with cefdinir, DC antibiotic was doxycycline. Her WBC did increase slightly from 14.1 to 16.2, and this was felt to be due to steroid use. Repeat CBC ordered for one week. She has a nebulizer machine at home if needed. Salt tablets were continued on DC, and CMP ordered for one week. She may benefit from pulmonary rehab after DC, and recommend discussing this at her follow up hospital visit. Procedures Performed: none Results and Findings: Pending Mircobiology Results 10/27/19 15:36 Blood Blood Culture - Preliminary NO GROWTH AFTER 48 HOURS 10/27/19 15:36 Blood Blood Culture - Preliminary NO GROWTH AFTER 48 HOURS Lab Pending Results 10/27/19 15:26: pCO2 34.8, pO2 56.9 L, HCO3 24.0, Total CO2 25.1 H, Base Excess 0.7, ABG pH 7.46 H, ABG O2 Sat (Measured) 91.2 L 10/27/19 15:36: WBC 9.9, RBC 4.50, Hgb 14.3, Hct 40.7, MCV 90.4, MCH 31.8 H, MCHC 35.1, RDW 12.4, Plt Count 303, MPV 8.8, Immature Gran % (Auto) 0.30, Immature Gran # (Auto) 0.03, Neutrophils % 80.4 H, Lymphocytes % 16.9 L, Monocytes % 2.3, Eosinophils % 0.0, Basophils % 0.1, Nucleated RBC % 0.0, Neutrophils # 8.0 H, Lymphocytes # 1.68, Monocytes # 0.2, Eosinophils # 0.0, Absolute Basophils 0.0 10/27/19 15:36: Sodium 118 L* D, Plasma Sodium 119 L*, Potassium 4.1, Chloride 83 L, Carbon Dioxide 25.1, Anion Gap 14.0 H, BUN 10, Creatinine 0.52, Est GFR (Non-Af Amer) 123, BUN/Creatinine Ratio 19.2, Random Glucose 140 H, Calcium 8.9, Calcium Adj for Albumin 8.6, Total Bilirubin 0.6, AST 30, ALT 51, Alkaline Phosphatase 67, Troponin I Less than 0.017, B-Natriuretic Peptide 385 H, Total Protein 7.1, Albumin 4.0 10/27/19 18:26: Sodium 119 L 10/27/19 20:00: Sodium 119 L 10/27/19 22:11: Sodium 124 L 10/28/19 06:36: WBC 6.2 D, RBC 4.17 L, Hgb 12.9, Hct 37.5, MCV 89.9, MCH 30.9, MCHC 34.4, RDW 12.2, Plt Count 285, MPV 9.1, Immature Gran % (Auto) 0.50 H, Immature Gran # (Auto) 0.03, Neutrophils % 70.2, Lymphocytes % 26.2, Monocytes % 2.9, Eosinophils % 0.0, Basophils % 0.2, Nucleated RBC % 0.0, Neutrophils # 4.3, Lymphocytes # 1.62, Monocytes # 0.2, Eosinophils # 0.0, Absolute Basophils 0.0 10/28/19 06:36: Sodium 124 L, Plasma Sodium 125 L, Potassium 4.1, Chloride 90 L, Carbon Dioxide 28.9, Anion Gap 9.2, BUN 5, Creatinine 0.41, Est GFR (Non-Af Amer) 162 H D, BUN/Creatinine Ratio 12.2, Random Glucose 139 H, Calcium 8.3, Calcium Adj for Albumin 8.5, Total Bilirubin 0.4, AST 22, ALT 42, Alkaline Phosphatase 56, Total Protein 6.2, Albumin 3.3 L 10/28/19 16:28: Sodium 129 L 10/29/19 06:25: WBC 14.1 H D, RBC 4.57, Hgb 14.5, Hct 42.2, MCV 92.3, MCH 31.7 H, MCHC 34.4, RDW 12.6, Plt Count 318, MPV 9.0, Immature Gran % (Auto) 0.70 H, Immature Gran # (Auto) 0.10 H, Neutrophils % 78.9 H, Lymphocytes % 14.6 L, Monocytes % 5.6, Eosinophils % 0.1, Basophils % 0.1, Nucleated RBC % 0.0, Neutrophils # 11.2 H, Lymphocytes # 2.06, Monocytes # 0.8, Eosinophils # 0.0, Absolute Basophils 0.0 10/29/19 06:25: Sodium 126 L, Plasma Sodium 127 L, Potassium 4.1, Chloride 93 L, Carbon Dioxide 26.9, Anion Gap 10.2, BUN 12 D, Creatinine 0.52, Est GFR (Non-Af Amer) 123 D, BUN/Creatinine Ratio 23.1 H, Random Glucose 135 H, Calcium 8.6, Calcium Adj for Albumin 8.5, Total Bilirubin 0.3, AST 20, ALT 42, Alkaline Phosphatase 59, Total Protein 6.9, Albumin 3.7 10/30/19 05:35: WBC 16.2 H, RBC 4.17 L, Hgb 13.1, Hct 38.5, MCV 92.3, MCH 31.4 H, MCHC 34.0, RDW 12.7, Plt Count 333, MPV 9.0, Neutrophils % (Manual) 61, Lymphocytes % (Manual) 34, Monocytes % (Manual) 5, Neutrophils # (Manual) 9.9 H, Lymphocytes # (Manual) 5.5 H, Monocytes # (Manual) 0.8, Platelet Estimate Normal, RBC Morphology Normal 10/30/19 05:35: Sodium 131 L, Plasma Sodium 131, Potassium 3.6, Chloride 97, Car bon Dioxide 29.2, Anion Gap 8.4, BUN 17, Creatinine 0.54, Est GFR (Non-Af Amer) 118, BUN/Creatinine Ratio 31.5 H, Random Glucose 88 D, Calcium 8.4, Calcium Adj for Albumin 8.8, Total Bilirubin 0.3, AST 20, ALT 43, Alkaline Phosphatase 51, Total Protein 5.7 L, Albumin 3.1 L Discharge Location: Home Disposition: Home self-care Condition: Fair Discharge Activity: Activity as tolerated Discharge Diet: Resume usual diet Referrals: Juanjose Alicia MD [Primary Care Provider] - One Week Additional Patient Instructions (free text): If Ravin is unavailable early this week, please schedule TCM appt with Dr. Carolina or Dr. Martin. Prescriptions (Any new or edited meds): Albuterol Sulfate [Albuterol Sulfate 2.5 MG/0.5ML] 2.5 mg INHALATION Q6H PRN #1 vial.neb PRN Reason: Dyspnea Transmission Status: P[place] predniSONE [Prednisone] 40 mg PO DAILY #10 tab Transmission Status: [place] guaiFENesin [Robitussin] 100 mg PO Q4H PRN #1 bottle PRN Reason: Cough Transmission Status: P[place] Sodium Chloride 2 gm PO TID #60 tab Transmission Status: P[place] Doxycycline Hyclate [Vibratab] 100 mg PO BID #10 tab Transmission Status: Pending [place] Complete Home Medications List: Complete Home Medication List: Cetirizine HCl [Zyrtec] 5 mg PO DAILY 03/11/14 Multivitamins [Multivitamin Joseg Uadalupe] 1 cap PO DAILY 03/11/14 Lutein/Zeaxanthin 1 cap PO DAILY 07/20/14 albuterol sulfate 90 mcg/actuation aerosol inhaler 2 puff INHALATION Q3H PRN #18 g 01/13/19 omeprazole magnesium 20 mg tablet,delayed release 20 mg PO DAILY #90 tab 01/13/19 acetaminophen 650 mg tablet,extended release 650 mg PO BID tab 04/28/19 fluticasone 250 mcg-salmeterol 50 mcg/dose blistr powdr for inhalation 1 inh IH BID #60 ea 09/22/19 hydrochlorothiazide 12.5 mg tablet 6.25 mg PO DAILY #45 tab 09/22/19 losartan 25 mg tablet 25 mg PO DAILY #90 tab 09/22/19 prednisone 20 mg tablet 40 mg PO DAILY 5 Days #10 tab 10/25/19 Albuterol Sulfate [Albuterol Sulfate 2.5 MG/0.5ML] 2.5 mg INHALATION Q6H PRN #1 vial.neb 10/30/19 Doxycycline Hyclate [Vibratab] 100 mg PO BID #10 tab 10/30/19 Sodium Chloride 2 gm PO TID #60 tab 10/30/19 guaiFENesin [Robitussin] 100 mg PO Q4H PRN #1 bottle 10/30/19 predniSONE [Prednisone] 40 mg PO DAILY #10 tab 10/30/19
[2019-10-30] MEDS ORDERED: predniSONE 20 MG TABLET PO SCH (09:00)
[2019-10-30 09:53] VITALS: BP 152/86
== END 2019-10-30 10:00 | disposition home or self-care (01) | DRG 191 ==
LOC: ER 14:59 → MS 16:47
PROVIDERS: ADMIT Internal Medicine; ATTEND Internal Medicine
CPT/HCPCS: 36415; 36600; 71020; 71046; 80053; 82803; 83519; 83880; 84295; 84484; 85007; 85025; 87040; 93005; 94640; 94760; 96361; 96374; 99214; 99284; 99285; G0463